=== PATIENT | male | born 1940 | race Caucasian/White ===

== ENCOUNTER 2018-05-06 13:52 | Emergency (ER) | payer OTHER ==
--- OUTSIDE RECORDS SUMMARY | 2018-05-06 13:54 | XMS REPORT | Clinical Summary ---
:1940 Author Organization [facility] Address [address] [place] [address] Care Team Providers Name Role Phone Farheen Delgado MD Primary Care Provider Allergies No Known Allergies Current Medications Prescription Sig. Disp. Refills Start Date End Date Status bicalutamide (CASODEX) 50 50 mg. 09/19/2017 Active mg chemo tablet ezetimibe (ZETIA) 10 mg 10 mg. 09/06/2017 Active tablet fenofibrate (TRICOR) 48 MG 48 mg. 10/03/2017 Active tablet clopidogrel (PLAVIX) 75 mg 75 mg. 09/06/2017 Active tablet atorvastatin (LIPITOR) 80 80 mg. 10/03/2017 Active MG tablet digOXIN (LANOXIN) 125 mcg 09/19/2017 Active tablet sotalol (BETAPACE) 80 MG 80 mg. 10/03/2017 Active tablet aspirin (ECOTRIN) 81 MG Take 81 mg by Active enteric coated tablet mouth daily. furosemide (LASIX) 40 mg Take 40 mg by Active tablet mouth daily. Active Problems Not on file Encounters Date Type Specialty Care Team Description 12/12/2017 Telephone Cardiothoracic Surgery Velasquez Cai MD 12/10/2017 Hospital Encounter Radiology Jimbo Stern MD 12/10/2017 Hospital Encounter Radiology Jimbo Stern MD 12/10/2017 Hospital Encounter Radiology Jimbo Stern MD 12/10/2017 Hospital Encounter Radiology Velasquez Cai Lung nodule; MD Angela Pre-op testing 12/10/2017 Ancillary Orders Cardiothoracic Surgery Velasquez Cai Lung nodule ; MD Angela Pre-op testing 12/07/2017 Telephone Radiology Aida Bashir, MARILOU 12/06/2017 Orders Only Cardiothoracic Surgery Velasquez Cai MD 12/06/2017 Telephone Radiology Aida Bashir RN 11/16/2017 Telephone Cardiothoracic Surgery Leida Rodriguez MA 11/15/2017 Telephone Cardiothoracic Surgery Reanna Mitchell MA 10/31/2017 Telephone Cardiothoracic Surgery Leida Rodriguez MA 10/30/2017 Orders Only Cardiothoracic Surgery Michael, Lung nodule ( Primary Dx); SHAWNEE Casarez Pre-op testing 10/29/2017 Telephone Cardiothoracic Surgery Reanna Mitchell MA 10/22/2017 Hospital Encounter Radiology Velasquez Cai MD 10/22/2017 Office Visit Cardiothoracic Surgery Velasquez Cai MD (Primary Dx) 10/22/2017 Ancillary Orders Radiology Velasquez Cai MD 10/15/2017 Orders Only Cardiothoracic Surgery Clinton Rich MD after 05/05/2017 Family History Medical History Relation Name Comments Heart attack Father Diabetes Mother Relation Name Status Comments Father Mother Social History Tobacco Use Types Packs/Day Years Used Date Current Every Day Smoker Cigarettes 0.1 60 Smokeless Tobacco: Former User Alcohol Use Drinks/Week oz/Week Comments Yes occ. Sex Assigned at Date Recorded Not on file Last Filed Vital Signs Vital Sign Reading Time Taken Blood Pressure 131/60 12/10/2017 1:00 PM CDT Pulse 75 12/10/2017 1:00 PM CDT Temperature 36.3 C (97.3 F) 12/10/2017 1:00 PM CDT Respiratory Rate 18 12/10/2017 1:00 PM CDT Oxygen Saturation 97% 12/10/2017 1:00 PM CDT Inhaled Oxygen Concentration - - Weight 68 kg (150 lb) 12/10/2017 8:01 AM CDT Height 182.9 cm (6') 12/10/2017 8:01 AM CDT Body Mass Index 20.34 12/10/2017 8:01 AM CDT Plan of Treatment Health Maintenance Due Date Last Done Comments SHINGRIX VACCINE (#1) 1990 ZOSTER VACCINE 2000 PNEUMOCOCCAL POLYSACCHARIDE VACCINE AGE 65 AND OVER 2005 PNEUMOCOCCAL-13 2005 INFLUENZA VACCINE 03/27/2018 Procedures Procedure Name Priority Date/Time Associated Comments Diagnosis CYTOLOGY Routine 12/10/2017 4:41 Results for this (NON-GYNECOLOGICAL) PM CDT procedure are in REQUEST the results section. XR CHEST 1 VW Routine 12/10/2017 12:44 Results for this PM CDT procedure are in the results section. MISCELLANEOUS REFERRAL Routine 12/10/2017 12:00 Results for this TEST PM CDT procedure are in the results section. XR CHEST 1 VW Routine 12/10/2017 11:27 Results for this AM CDT procedure are in the results section. XR CHEST 1 VW Routine 12/10/2017 11:00 Results for this AM CDT procedure are in the results section. CT NEEDLE BIOPSY NO Routine 12/10/2017 9:44 Lung nodule Results for this CONTRAST AM CDT Pre-op testing procedure are in the results section. SURGICAL PATHOLOGY Routine 12/10/2017 9:39 Results for this REQUEST AM CDT procedure are in the results section. SURGICAL PATHOLOGY Routine 12/10/2017 9:39 Results for this REQUEST AM CDT procedure are in the results section. SURGICAL PATHOLOGY Routine 12/10/2017 9:39 Results for this REQUEST AM CDT procedure are in the results section. SURGICAL PATHOLOGY Routine 12/10/2017 9:39 Results for this REQUEST AM CDT procedure are in the results section. CBC WITH PLATELET AND Routine 12/06/2017 1:27 Results for this DIFFERENTIAL PM CDT procedure are in the results section. PROTHROMBIN TIME WITH Routine 12/06/2017 1:27 Results for this INR PM CDT procedure are in the results section. PARTIAL THROMBOPLASTIN Routine 12/06/2017 1:27 Results for this TIME (PTT) PM CDT procedure are in the results section. PET CT WHOLE BODY Routine 10/11/2017 9:15 Results for this EXTERNAL STUDY AM OBSTETRICS GYNECOLOGY PHYSICIAN procedure are in the results section. PET CT SKULL BASE MID Routine 10/11/2017 12:00 THIGH EXTERNAL STUDY AM OBSTETRICS GYNECOLOGY PHYSICIAN after 05/05/2017 Results Cytology (non-gynecological) request (12/10/2017 4:41 PM) [facility] DEPARTMENT OF PATHOLOGY AND GENOMIC MEDICINE Cytology See link below for PDF [facility] DEPARTMENT OF (non-gynecological) report Lab Report PATHOLOGY AND GENOMIC MEDICINE Result status This is Final Report to [facility] DEPARTMENT OF [id number] PATHOLOGY AND GENOMIC MEDICINE Performing Organization Address City/State/Zipcode Phone Number [facility] DEPARTMENT OF PATHOLOGY AND [address] [place] [address] GENOMIC MEDICINE XR Chest 1 Vw (12/10/2017 12:44 PM)Only the most recent of3 resultswithin the time period is included. Narrative Performed At PROCEDURE:XR CHEST 1 [facility] CLINICAL HISTORY:post lung bx COMPARISON:December 10, 2017 at 1039 hours TECHNIQUE: A single PA view was performed. FINDINGS: A persistent unchanged left pneumothorax is seen both in the left apex and the left lung base. No tension pneumothorax is seen. Persistent ill-defined shadowing is seen in the left midlung likely representing the lung lesion. The cardiac silhouette is within normal limits for size. The pulmonary vascularity is normal. The patient has had a prior median sternotomy and CABG surgery. IMPRESSION: No change in size of the left pneumothorax is noted from the study done earlier the same day. [id number] Procedure Note Interface, Radiology Results Incoming - 12/10/2017 3:18 PM CDT PROCEDURE: XR CHEST 1 VW CLINICAL HISTORY: post lung bx COMPARISON: December 10, 2017 at 1039 hours TECHNIQUE: A single PA view was performed. FINDINGS: A persistent unchanged left pneumothorax is seen both in the left apex and the left lung base. No tension pneumothorax is seen. Persistent ill-defined shadowing is seen in the left midlung likely representing the lung lesion. The cardiac silhouette is within normal limits for size. The pulmonary vascularity is normal. The patient has had a prior median sternotomy and CABG surgery. IMPRESSION: No change in size of the left pneumothorax is noted from the study done earlier the same day. [id number] Performing Organization Address City/State/Zipcode Phone Number [facility] [address] [place] [address] Miscellaneous referral test (12/10/2017 12:00 PM) [facility] [place] [facility] [id number] [facility] result SEE NOTE [facility] Comment: MET FISH Sample type: Paraffin, lung Case# [id number] RESULTS: NEGATIVE Interpretation: MET(7q31) signals per nucleus: 2.0 CEN7 signals per nucleus: 2.1 MET-CEN7 signal ratio: 1.0 An H&E stained slide was reviewed by a pathologist to identify traget areas containing invasive tumor. FISH analysis was performed within the marked target areas using a dual-probe FISH assay to detect MET overexpression. Results show no evidence of MET amplification with a MET/CEN7 ratio of <2.0. This is a NEGATIVE result. This MET FISH assay was scored manually by a certified histologist technologist. Two or more independent areas containing invasive tumor were analyzed and the technical results underwent further review for senior quality control inspector purposes. Reference range: Positive: MET(7q31) to CEN7 signal ration is >/=2.0 or when 10% of tumor cells contain clusters of >15 copies per cell of MET (7q31) signals. Negative: MET(7q31) to CEN7 signal ratio is <2.0 Equivocal: MET copy number >/=5.0 and MET/CEN7 ratio <2.0 Probe set details: MET: nuc nelly(CEN7x2.1,METx2.0)[50] Nuclei scored: 50 Test(s) performed by: [employer] [facility] [place] Narrative Performed At [facility] MET FISH [id number], A1 DOS 12/10/17 Performing Organization Address City/State/Zipcode Phone Number [facility] [address] [place] [address] CT Needle Biopsy No Contrast (12/10/2017 9:44 AM) Narrative Performed At EXAMINATION:CT NEEDLE BIOPSY NO CONTRAST HM [facility] CLINICAL HISTORY:R91.1 Solitary pulmonary nodule, Z01.818 Encounter for other preprocedural examination, PHU lung Nodule COMPARISON:PET scan dated 10/11/2017 TECHNIQUE: CT-guided biopsy of left upper lobe 1.5 cm nodule The risks, benefits, and alternatives were discussed with the patient and written informed consent was obtained. A site for needle injury was selected and the skin was prepped and draped in the usual sterile fashion. After local administration of 1% buffered lidocaine, a tiny dermatotomy was made. CT guidance was used to obtain 3 20-gauge core specimens of a 1.5 cm left upper lobe nodule were obtained. The specimens were reviewed with pathology and were deemed adequate. The patient was discharged to the radiology recovery area for monitoring prior to discharge. They have been instructed to follow-up with requesting physician for the results of the biopsy. Conscious sedation: 0.5 mg of IV Versed and 25 mcg of IV fentanyl.. The patient was monitored throughout the procedure and in the postprocedure recovery area. Moderate Sedation Intraservice Time: Under physician supervision, Versed and Fentanyl administered intravenously for moderate sedation.Pulse oximetry, heart rate and BP are continuously monitored by an independent trained observer present.The physician spent 29minutes of face to face time with the patient. Post procedure chest regressed demonstrated a small stable left apical and lateral pneumothorax. The patient was asymptomatic without chest pain or shortness of breath and the patient was discharged home in stable condition given the stability and specific instructions. EBL: None. Complications: None. Assistants: None. IMPRESSION: 1.Successful CT-guided core biopsy of left upper lobe 1.5 cm pulmonary nodule. 2.Small postprocedural stable left apical pneumothorax without symptoms. Procedure Note Hm Interface, Radiology Results Incoming - 12/10/2017 5:05 PM CDT EXAMINATION: CT NEEDLE BIOPSY NO CONTRAST CLINICAL HISTORY: R91.1 Solitary pulmonary nodule, Z01.818 Encounter for other preprocedural examination, PHU lung Nodule COMPARISON: PET scan dated 10/11/2017 TECHNIQUE: CT-guided biopsy of left upper lobe 1.5 cm nodule The risks, benefits, and alternatives were discussed with the patient and written informed consent was obtained. A site for needle injury was selected and the skin was prepped and draped in the usual sterile fashion. After local administration of 1% buffered lidocaine, a tiny dermatotomy was made. CT guidance was used to obtain 3 20-gauge core specimens of a 1.5 cm left upper lobe nodule were obtained. The specimens were reviewed with pathology and were deemed adequate. The patient was discharged to the radiology recovery area for monitoring prior to discharge. They have been instructed to follow-up with requesting physician for the results of the biopsy. Conscious sedation: 0.5 mg of IV Versed and 25 mcg of IV fentanyl.. The patient was monitored throughout the procedure and in the postprocedure recovery area. Moderate Sedation Intraservice Time: Under physician supervision, Versed and Fentanyl administered intravenously for moderate sedation. Pulse oximetry, heart rate and BP are continuously monitored by an independent trained observer present. The physician spent 29 minutes of face to face time with the patient. Post procedure chest regressed demonstrated a small stable left apical and lateral pneumothorax. The patient was asymptomatic without chest pain or shortness of breath and the patient was discharged home in stable condition given the stability and specific instructions. EBL: None. Complications: None. Assistants: None. IMPRESSION: 1. Successful CT-guided core biopsy of left upper lobe 1.5 cm pulmonary nodule. 2. Small postprocedural stable left apical pneumothorax without symptoms. Performing Organization Address [facility] Phone Number [facility] [address] [place] [address] Surgical pathology request (12/10/2017 9:39 AM)Only the most recent of4 resultswithin the time period is included. [facility] DEPARTMENT OF PATHOLOGY AND GENOMIC MEDICINE Surgical pathology See link below for PDF Lab [facility] DEPARTMENT OF report Report PATHOLOGY AND GENOMIC MEDICINE Result status This is Supplemental Report [facility] DEPARTMENT OF to [id number] PATHOLOGY AND GENOMIC MEDICINE Performing Organization Address [facility] Phone Number [facility] DEPARTMENT OF PATHOLOGY AND [address] [place] [address] [employer] [facility] Partial thromboplastin time, activated (12/06/2017 1:27 PM) PTT 29 22 - 34 sec [facility] Comment: This test has not been validated for monitoring unfractionated heparin therapy. For testing that is validated for this type of therapy, please refer to the Heparin Anti-Xa assay (test code 89839). For additional information, please refer to http://[employer]/faq/MUA625 (This link is being provided for informational/educational purposes only.) Narrative Performed At FASTING:NO QUEST FASTING: NO Resulting Agency Comment Performing Organization Information: Site ID: [id number] Name: [facility] Address: [address] [place] [phone] Director: Randa Huynh MD Performing Organization Address [facility] Phone Number [place] [facility] [address] [place] [address] Prothrombin time with INR (12/06/2017 1:27 PM) INR 1.0 [facility] Comment: Reference Range 0.9-1.1 Moderate-intensity Warfarin Therapy 2.0-3.0 Higher-intensity Warfarin Therapy 3.0-4.0 Prothrombin time 10.3 9.0 - 11.5 sec [facility] Comment: For more information on this test, go to: http://education.[employer]/faq/RYL395 Narrative Performed At FASTING:NO QUEST FASTING: NO Resulting Agency Comment Performing Organization Information: Site ID: [id number] Name: [facility] Address: [address] [place] [phone] Director: Randa Huynh MD Performing Organization Address City/[facility]/Zipcode Phone Number [place] [facility] [address] [address] CBC with platelet and differential (12/06/2017 1:27 PM) WBC 9.0 3.8 - 10.8 Thousand/uL [facility] RBC 4.31 4.20 - 5.80 Million/uL [facility] HGB 12.9 (L) 13.2 - 17.1 g/dL [facility] HCT 38.5 38.5 - 50.0 % [facility] MCV 89.3 80.0 - 100.0 fL [facility] MCH 29.9 27.0 - 33.0 pg [facility] MCHC 33.5 32.0 - 36.0 g/dL [facility] RDW 13.9 11.0 - 15.0 % [facility] Platelet count 312 140 - 400 Thousand/uL [facility] MPV 12.8 (H) 7.5 - 12.5 fL [facility] Neutrophils, absolute 5,256 1,500 - 7,800 cells/uL [facility] Lymphocytes, absolute 2,691 850 - 3,900 cells/uL [facility] [email or web address] [facility] Monocytes, absolute 729 200 - 950 cells/uL [facility] [email or web address] [facility] Eosinophils, absolute 252 15 - 500 cells/uL [facility] [email or web address] [facility] Basophils, absolute 72 0 - 200 cells/uL [facility] [email or web address] [facility] Neutrophils 58.4 % [facility] Lymphocytes 29.9 % [facility] Monocytes 8.1 % [facility] Eosinophils 2.8 % [facility] [email or web address] [facility] Basophils + RC 0.8 % [facility] Narrative Performed At FASTING:NO QUEST FASTING: NO Resulting Agency Comment Performing Organization Information: Site ID: [id number] Name: [facility] Address: [address] [place] [phone] Director: Randa Huynh MD Performing Organization Address [facility]/Zipcode Phone Number [place] [facility] [address] [address] PET/CT Whole Body External Study (10/11/2017 9:15 AM) Narrative Performed At This exam was not acquired at a [facility] facility and has not been [facility] interpreted by a [facility] Provider.The exam was imported into our imaging system for comparisons purposes. Performing Organization Address City/State/[facility] Phone Number [facility] [address] [place] [address] PET/CT Skull Base Mid Thigh External Study (10/11/2017) Narrative Performed At after 05/05/2017 Insurance Payer Benefit Plan / Group Subscriber ID Type Phone Address [facility] x[facility] O Home: [address] [phone] [place] [phone]
--- NOTE | 2018-05-06 15:03 | EDPHYS ---
Physician Documentation [facility] Name: Daniel Rivers Age: 77 yrs Sex: Male : 1940 Arrival Date: 05/06/2018 Time: 13:56 Bed 23 Private MD: Farheen Delgdao F ED Physician Alejandro Parsons HPI: 05/06 14:58 This 77 yrs old Male presents to ER via Wheelchair with complaints of Urinary rn Problem. 14:58 The patient presents with urinary symptoms, dysuria. Onset: The symptoms/episode rn began/occurred yesterday. Modifying factors: The symptoms are alleviated by nothing, the symptoms are aggravated by urinating. Severity of symptoms: At their worst the symptoms were mild, in the emergency department the symptoms are unchanged. The patient has not experienced similar symptoms in the past. Reports dysuria and increased frequency, has prostate cancer but quit treatments in middle of therapy, has not had surgery, no blood in urine, otherwise feels fine. No fever. . Historical: - Allergies: 14:14 No Known Allergies; aa5 - PMHx: 14:14 Prostate Cancer; aa5 - PSHx: 14:14 Triple Bypass; aa5 - Immunization history:: Pneumococcal vaccine status is unknown, Flu vaccine status is unknown. - Social history:: Smoking status: Patient uses tobacco products, smokes one-half pack cigarettes per day. - Ebola Screening: : No symptoms or risks identified at this time. - Family history:: not pertinent. - Hospitalizations: : No recent hospitalization is reported. ROS: 14:58 Constitutional: Negative for fever, chills, and weight loss, Eyes: Negative for injury, rn pain, redness, and discharge, Neck: Negative for injury, pain, and swelling, Cardiovascular: Negative for chest pain, palpitations, and edema, Respiratory: Negative for shortness of breath, cough, wheezing, and pleuritic chest pain, Abdomen/GI: Negative for abdominal pain, nausea, vomiting, diarrhea, and constipation, : no bleeding, + dysuria MS/Extremity: Negative for injury and deformity, Skin: Negative for injury, rash, and discoloration, Neuro: Negative for headache, weakness, numbness, tingling, and seizure. Exam: 14:58 Constitutional: This is a well developed, well nourished patient who is awake, alert, rn and in no acute distress. Head/Face: Normocephalic, atraumatic. ENT: MMM Abdomen/GI: Soft, non-tende. No distension or tympany. No guarding or rebound. No evidence of tenderness throughout. Male : Normal genitalia with no discharge or lesions. Neuro: Awake and alert, GCS 15, oriented to person, place, time, and situation. Cranial nerves II-XII grossly intact. Motor strength 5/5 in all extremities. Sensory grossly intact. Cerebellar exam normal. Normal gait. Vital Signs: 14:15 BP 108 / 51; Pulse 79; Resp 16 S; Temp 97.5(TE); Pulse Ox 95% on R/A; Weight 68.04 kg aa5 (R); Height 6 ft. 0 in. (182.88 cm) (R); Pain 0/10; 15:31 BP 149 / 62; Pulse 68; Resp 17; Temp 98.2; Pulse Ox 97% on R/A; aj 14:15 Body Mass Index 20.34 (68.04 kg, 182.88 cm) aa5 MDM: 14:16 Patient medically screened. rn 14:58 Differential diagnosis: UTI, urinary retention, prostatitis, urethritis. Data reviewed: rn vital signs, nurses notes, lab test result(s), and as a result, I will discharge patient. Counseling: I had a detailed discussion with the patient and/or guardian regarding: the historical points, exam findings, and any diagnostic results supporting the discharge/admit diagnosis, lab results, the need for outpatient follow up, to return to the emergency department if symptoms worsen or persist or if there are any questions or concerns that arise at home. Special discussion: I discussed with the patient/guardian in detail that at this point there is no indication for admission to the hospital. It is understood, however, that if the symptoms persist or worsen the patient needs to return immediately for re-evaluation. 05/06 14:26 Order name: Urine Microscopic Only rn 05/06 14:26 Order name: Urine Culture rn 05/06 14:26 Order name: Urine Dipstick-Ancillary (obtain specimen); Complete Time: 15:13 rn 05/06 14:26 Order name: Bladder Scanner; Complete Time: 15:13 rn 05/06 15: Order name: Urine Dipstick--Ancillary (enter results) bd Administered Medications: 15:13 Drug: Rocephin (cefTRIAXone) 1 grams Route: IM; Site: right gluteus; aj 15:35 Follow up: Response: No adverse reaction aj Disposition: 05/06/18 15:02 Discharged to Home. Impression: Urinary tract infection, site not specified. - Condition is Stable. - Discharge Instructions: Dysuria, Urinary Tract Infection, Adult. - Prescriptions for Pyridium 200 mg Oral Tablet - take 1 tablet by ORAL route every 8 hours for 3 days; 9 tablet. cefpodoxime 100 mg Oral Tablet - take 2 tablet by ORAL route every 12 hours for 10 days take with food; 40 tablet. - Medication Reconciliation Form, Thank You Letter, Antibiotic Education, Prescription Opioid Use form. - Follow up: Private Physician; When: 2 - 3 days; Reason: Recheck today's complaints, Re-evaluation by your physician. - Problem is new. - Symptoms have improved. Signatures: Dispatcher [employer] EDOlga Pimentel RN RN aj Nieto, Roman, MD MD rn Calderon, Audri, RN RN aa5 Corrections: (The following items were deleted from the chart) 15:35 15:02 05/06/2018 15:02 Discharged to Home. Impression: Urinary tract infection, site aj not specified. Condition is Stable. Forms are Medication Reconciliation Form, Thank You Letter, Antibiotic Education, Prescription Opioid Use. Follow up: Private Physician; When: 2 - 3 days; Reason: Recheck today's complaints, Re-evaluation by your physician. Problem is new. Symptoms have improved. rn
--- NOTE | 2018-05-06 15:03 | ER ---
Nurse's Notes [facility] Name: Daniel Rivers Age: 77 yrs Sex: Male : 1940 Arrival Date: 05/06/2018 Time: 13:56 Bed 23 Private MD: Farheen Delgado F Diagnosis: Urinary tract infection, site not specified Presentation: 05/06 14:12 Presenting complaint: Patient states: "I am having trouble urinating and it's been aa5 hurting for about 2 days". Pt's daughter reports Hx.Prostate Cancer. Transition of care: patient was not received from another setting of care. Onset of symptoms was April 2018. Risk Assessment: Do you want to hurt yourself or someone else? Patient reports no desire to harm self or others. Initial Sepsis Screen: Does the patient meet any 2 criteria? No. Patient's initial sepsis screen is negative. Does the patient have a suspected source of infection? No. Patient's initial sepsis screen is negative. Care prior to arrival: None. 14:12 Method Of Arrival: Wheelchair aa5 14:12 Acuity: DAGOBERTO 3 aa5 Historical: - Allergies: 14:14 No Known Allergies; aa5 - PMHx: 14:14 Prostate Cancer; aa5 - PSHx: 14:14 Triple Bypass; aa5 - Immunization history:: Pneumococcal vaccine status is unknown, Flu vaccine status is unknown. - Social history:: Smoking status: Patient uses tobacco products, smokes one-half pack cigarettes per day. - Ebola Screening: : No symptoms or risks identified at this time. - Family history:: not pertinent. - Hospitalizations: : No recent hospitalization is reported. Screenin:27 Abuse screen: Denies threats or abuse. Denies injuries from another. Nutritional aj screening: No deficits noted. Tuberculosis screening: No symptoms or risk factors identified. Fall Risk None identified. Assessment: 14:27 General: Appears in no apparent distress. comfortable, Behavior is calm, cooperative, aj appropriate for age. Pain: Denies pain. Neuro: Level of Consciousness is awake, alert, obeys commands, Oriented to person, place, time, situation, Appropriate for age. Respiratory: Airway is patent Respiratory effort is even, unlabored, Respiratory pattern is regular, symmetrical. : Reports urgency, urinary frequency. Derm: Skin is intact, is healthy with good turgor, Skin is pink, warm \\T\\ dry. normal. 15:31 Reassessment: Patient appears in no apparent distress at this time. No changes from aj previously documented assessment. Patient and/or family updated on plan of care and expected duration. Pain level reassessed. Patient is alert, oriented x 3, equal unlabored respirations, skin warm/dry/pink. Patient denies pain at this time. Patient states feeling better. Vital Signs: 14:15 BP 108 / 51; Pulse 79; Resp 16 S; Temp 97.5(TE); Pulse Ox 95% on R/A; Weight 68.04 kg aa5 (R); Height 6 ft. 0 in. (182.88 cm) (R); Pain 0/10; 15:31 BP 149 / 62; Pulse 68; Resp 17; Temp 98.2; Pulse Ox 97% on R/A; aj 14:15 Body Mass Index 20.34 (68.04 kg, 182.88 cm) aa5 ED Course: 13:56 Patient arrived in ED. rg4 13:56 Farheen Delgado MD is Private Physician. rg4 14:13 Triage completed. aa5 14:13 Arm band placed on. aa5 14:16 Alejandro Parsons MD is Attending Physician. rn 14:22 Olga Garcia, MARILOU is Primary Nurse. aj 14:27 Patient has correct armband on for positive identification. Bed in low position. Call aj light in reach. Side rails up X2. Pulse ox on. NIBP on. 14:49 Bladder scan completed. 30 ML in bladder. aj 14:50 Initial lab(s) drawn, by me, sent to lab. aj 15:31 No provider procedures requiring assistance completed. Patient did not have IV access aj during this emergency room visit. Administered Medications: 15:13 Drug: Rocephin (cefTRIAXone) 1 grams Route: IM; Site: right gluteus; aj 15:35 Follow up: Response: No adverse reaction aj Outcome: 15:02 Discharge ordered by . rn 15:31 Discharged to home via wheelchair, with family. aj 15:31 Condition: good 15:31 Discharge instructions given to patient, family, Instructed on discharge instructions, follow up and referral plans. medication usage, Demonstrated understanding of instructions, follow-up care, medications, Prescriptions given X 2. 15:35 Patient left the ED. aj Signatures: Olga Garcia, Alejandro Fox RN, MD MD rn Calderon, Audri, MARILOU RN Yoselyn Santana 4
[2018-05-06] MEDS ORDERED: LIDOCAINE 1% MPF 2 ML AMPULE ONE (15:13)
[2018-05-06] MEDS ORDERED: CEFTRIAXONE 1000 MG/VIAL ONE (15:13)
[2018-05-06 15:26] LABS: Urine RBC <5 /HPF (NONE SEEN)
[2018-05-06 15:27] LABS: Urine Bacteria >50 /HPF (NONE SEEN); Urine Culture Reflex Order NOT NEEDED
[2018-05-06 16:00] LABS: Urine Blood 2+ (NEG); Urine Glucose NEGATIVE (NEG); Urine Protein 1+ (NEG); Urine Specific Gravity 1.025 (1.005-1.030)
== END 2018-05-06 15:35 | disposition home or self-care (01) ==
LOC: ER 13:52
DX: N39.0 Urinary tract infection, site not specified (principal); F17.210 Nicotine dependence, cigarettes, uncomplicated; Z85.46 Personal history of malignant neoplasm of prostate
CPT/HCPCS: 87086; 87088; J2001; 81003; 81015; 96372; 99284

== ENCOUNTER 2021-04-23 13:21 | Emergency (ER) | payer OTHER ==
[2021-04-23 14:23] LABS: Absolute Lymphocytes (CBC) 0.4 K/uL (0.7-4.9); Basophils % 0.1 % (0-1.3); Hematocrit 39.5 % (39.6-49.0); Lymphocytes % 3.6 % (15.3-44.8); MPV 9.7 fL (7.6-11.3); RBC Red Blood Cell Count 4.47 M/uL (4.33-5.43)
[2021-04-23 14:26] LABS: Urine Blood Trace-intact (Negative); Urine Glucose Negative (Negative); Urine Protein Negative (Negative); Urine Specific Gravity >=1.030 (1.005-1.030)
[2021-04-23 14:26] LABS: Protime INR 1.4
[2021-04-23] MEDS ORDERED: FAMOTIDINE 20 MG/2 ML VIAL IV ONE (14:26)
[2021-04-23] MEDS ORDERED: NA CHLORIDE 0.9% 1,000 ML ONE (14:27)
[2021-04-23 14:51] LABS: ALT/SGPT 23 U/L (12-78); AST/SGOT 57 U/L (15-37); Albumin 2.9 g/dL (3.4-5.0); Alkaline Phosphatase 44 U/L (45-117); BUN Blood Urea Nitrogen 34 mg/dL (7-18); Bicarbonate 28 mmol/L (21-32); Bilirubin Direct 0.1 mg/dL (0-0.2); Bilirubin Total 0.3 mg/dL (0.2-1.0); Glucose Level 104 mg/dL (74-106); Lipase 114 U/L (73-393); Magnesium 2.2 mg/dL (1.8-2.4); NT PRO-BNP 791 pg/mL (<450); Potassium 3.8 mmol/L (3.5-5.1); Protein, Total 7.4 g/dL (6.4-8.2); Sodium Level 138 mmol/L (136-145); Troponin (Emerg Dept Use Only) < 0.02 ng/mL (0.0-0.045)
--- NOTE | 2021-04-23 15:08 | RAD REPORT ---
EXAM DESCRIPTION: CT - Abdomen Pelvis Wo Contrast - 04/23/2021 2:43 pm CLINICAL HISTORY: Abdominal pain. ABD PAIN COMPARISON: CT ABD PELVIS W CONTRAST dated 10/22/2007; CT-RAD THERAPY FLD PLACE-CHEST dated 03/07/2021 ; Ct Skull/Thigh dated 02/03/2021; Chest Abdomen Pelvis W Cont dated 01/06/2021 TECHNIQUE: CT imaging of the abdomen and pelvis was performed without contrast. Solid organ, bowel a nd vascular assessment is limited due to lack of IV and oral contrast. All CT scans are performed using dose optimization technique as appropriate and may include automated exposure control or mA/KV adjustment according to patient size. FINDINGS: Mild nonspecific opacities are present in both lung bases posteriorly. The liver, spleen, pancreas, adrenal glands and kidneys are within normal limits for a limited non-co ntrast examination.Small gallstones suspected in the gallbladder. No bowel obstruction, free air, free fluid or abscess. Sigmoid diverticulosis coli without diverticul itis. The appendix is normal. 15 mm diverticulum of the posterior right aspect of the urinary bladder seen close to the right UVJ. Moderate lumbar degenerative changes. IMPRESSION: Cholelithiasis. 15 mm diverticulum along the posterior right aspect of the urinary bladder near UVJ. Sigmoid diverticulosis without diverticulitis. A limited non-contrast examination was performed as detailed.
--- NOTE | 2021-04-23 15:23 | RAD REPORT ---
EXAM DESCRIPTION: RAD - Chest Single View - 04/23/2021 3:05 pm CLINICAL HISTORY: COUGH Chest pain. COMPARISON: CHEST PA AND LAT 2 VIEW dated 12/30/2009; CHEST PA AND LAT 2 VIEW dated 09/25/2007 FINDINGS: Portable technique limits examination quality. Mild interstitial prominence is seen. This may represent mild interstitial pulmonary edema or viral i nfection/bronchitis. The heart is normal in size. No displaced fractures.Changes of prior CABG are no nicolás.
--- NOTE | 2021-04-23 17:47 | EDPHYS ---
Physician Documentation [facility] Name: Daniel Rviers Age: 80 yrs Sex: Male : 1940 Arrival Date: 04/23/2021 Time: 13:26 Bed 27 Private MD: ALEXI Physician Karlos Pierson HPI: 04/23 17:37 This 80 yrs old Male presents to ER via EMS with complaints of Abdominal Pain.luz maria 17:37 The patient presents with abdominal pain in the upper abdomen, in the lower abdomen. luz maria Onset: The symptoms/episode began/occurred 1 day(s) ago. The symptoms do not radiate. Associated signs and symptoms: Pertinent positives: dysuria, nausea. The symptoms are described as achy, burning. Modifying factors: The symptoms are alleviated by nothing, the symptoms are aggravated by nothing. The patient has not experienced similar symptoms in the past. Historical: - Allergies: 17:07 No Known Allergies; ld1 - PMHx: 17:07 Prostate Cancer; ld1 - Immunization history:: Adult Immunizations up to date. - Social history:: Smoking status: . - Family history:: not pertinent. ROS: 17:37 Constitutional: Negative for fever, chills, and weight loss, Eyes: Negative for injury, luz maria pain, redness, and discharge, ENT: Negative for injury, pain, and discharge, Neck: Negative for injury, pain, and swelling, Cardiovascular: Negative for chest pain, palpitations, and edema, Respiratory: Negative for shortness of breath, cough, wheezing, and pleuritic chest pain, Back: Negative for injury and pain, MS/Extremity: Negative for injury and deformity, Skin: Negative for injury, rash, and discoloration, Neuro: Negative for headache, weakness, numbness, tingling, and seizure, Psych: Negative for depression, anxiety, suicide ideation, homicidal ideation, and hallucinations, Allergy/Immunology: Negative for hives, rash, and allergies, Endocrine: Negative for neck swelling, polydipsia, polyuria, polyphagia, and marked weight changes, Hematologic/Lymphatic: Negative for swollen nodes, abnormal bleeding, and unusual bruising. 17:37 Abdomen/GI: Positive for abdominal pain, of the right upper quadrant, left upper quadrant, right lower quadrant and left lower quadrant. Exam: 17:37 Constitutional: This is a well developed, well nourished patient who is awake, alert, luz maria and in no acute distress. Head/Face: Normocephalic, atraumatic. Eyes: Pupils equal round and reactive to light, extra-ocular motions intact. Lids and lashes normal. Conjunctiva and sclera are non-icteric and not injected. Cornea within normal limits. Periorbital areas with no swelling, redness, or edema. ENT: Nares patent. No nasal discharge, no septal abnormalities noted. Tympanic membranes are normal and external auditory canals are clear. Oropharynx with no redness, swelling, or masses, exudates, or evidence of obstruction, uvula midline. Mucous membranes moist. Neck: Trachea midline, no thyromegaly or masses palpated, and no cervical lymphadenopathy. Supple, full range of motion without nuchal rigidity, or vertebral point tenderness. No Meningismus. Chest/axilla: Normal chest wall appearance and motion. Nontender with no deformity. No lesions are appreciated. Cardiovascular: Regular rate and rhythm with a normal S1 and S2. No gallops, murmurs, or rubs. Normal PMI, no JVD. No pulse deficits. Respiratory: Lungs have equal breath sounds bilaterally, clear to auscultation and percussion. No rales, rhonchi or wheezes noted. No increased work of breathing, no retractions or nasal flaring. Abdomen/GI: Soft, non-tender, with normal bowel sounds. No distension or tympany. No guarding or rebound. No evidence of tenderness throughout. Back: No spinal tenderness. No costovertebral tenderness. Full range of motion. Male : Normal genitalia with no discharge or lesions. Skin: Warm, dry with normal turgor. Normal color with no rashes, no lesions, and no evidence of cellulitis. MS/ Extremity: Pulses equal, no cyanosis. Neurovascular intact. Full, normal range of motion. Neuro: Awake and alert, GCS 15, oriented to person, place, time, and situation. Cranial nerves II-XII grossly intact. Motor strength 5/5 in all extremities. Sensory grossly intact. Cerebellar exam normal. Normal gait. Psych: Awake, alert, with orientation to person, place and time. Behavior, mood, and affect are within normal limits. 17:37 Neuro: Orientation: to person, place, Not oriented to time, situation, Mentation: no acute changes, slow to respond, Memory: unable to test, Cranial nerves: grossly normal, is grossly normal based on the patient's age, no acute changes, Cerebellar function: unable to test, Motor: moves all fours, strength is 5/5 in all extremities, Sensation: no obvious gross deficits, appropriate Gait: not tested. seizure activity, is not displayed by the patient. Vital Signs: 13:29 BP 110 / 76; Pulse 65; Resp 18; Pulse Ox 95% on 2 lpm NC; Pain 3/10; ch5 13:35 BP 120 / 57; Pulse 77; Resp 18; Temp 97.7(T); Pulse Ox 94% on R/A; Pain 3/10; ch5 15:26 BP 111 / 71; Pulse 78; Resp 24; Pulse Ox 94% on 4 lpm NC; ld1 17:04 BP 110 / 56; Pulse 78; Resp 18; Pulse Ox 97% on 4 lpm NC; ld1 17:47 BP 116 / 60; Pulse 79; Resp 24; Pulse Ox 95% on 4 lpm NC; ld1 19:14 BP 114 / 80; Pulse 78; Resp 19; Pulse Ox 94% on 4 lpm NC; ld1 MDM: 13:46 Patient medically screened. luz maria 17:37 Differential diagnosis: bowel obstruction, cholecystitis, Cholelithiasis, luz maria diverticulitis, gastritis, Irritable bowel syndrome, non-specific abd pain, pancreatitis, Peptic Ulcer Disease, Prostatitis, Ureterolithiasis, urinary tract infection. Data reviewed: vital signs, nurses notes, lab test result(s), EKG, radiologic studies. Data interpreted: engine monitor: rate is 78 beats/min, rhythm is regular, Pulse oximetry: on room air is 97 %. Test interpretation: by ED physician or midlevel provider: ECG, plain radiologic studies. 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 04/23 13:46 Order name: Basic Metabolic Panel [facility] 04/23 13:46 Order name: CBC with Diff [facility] 04/23 13:46 Order name: LFT's [facility] 04/23 13:46 Order name: Magnesium; Complete Time: 17:02 [facility] 04/23 13:46 Order name: NT PRO-BNP; Complete Time: 17:02 [facility] 04/23 13:46 Order name: PT-INR; Complete Time: 17:02 [facility] 04/23 13:46 Order name: Troponin (emerg Dept Use Only); Complete Time: 17:02 [facility] 04/23 13:46 Order name: Lipase; Complete Time: 17:02 [facility] 04/23 13:46 Order name: Urine Culture [facility] 04/23 13:47 Order name: Basic Metabolic Panel; Complete Time: 17:02 [facility] 04/23 13:47 Order name: CBC with Automated Diff [facility] 04/23 13:47 Order name: Liver (Hepatic) Function; Complete Time: 17:02 [facility] 04/23 14:26 Order name: Urine Dipstick-Ancillary; Complete Time: 17:02 [facility] 04/23 20:11 Order name: CBC Smear Scan [facility] 04/23 13:46 Order name: XRAY Chest (1 view); Complete Time: 17:02 [facility] 04/23 13:46 Order name: EKG; Complete Time: 13:47 [facility] 04/23 13:46 Order name: Cardiac monitoring; Complete Time: 15:26 [facility] 04/23 13:46 Order name: EKG - Nurse/Tech; Complete Time: 15:26 [facility] 04/23 13:46 Order name: IV Saline Lock; Complete Time: 14:30 [facility] 04/23 13:46 Order name: Labs collected and sent; Complete Time: 14:30 [facility] 04/23 13:46 Order name: O2 Per Protocol; Complete Time: 14:30 [facility] 04/23 13:46 Order name: O2 Sat Monitoring; Complete Time: 14:30 [facility] 04/23 13:46 Order name: Urine Dipstick-Ancillary (obtain specimen); Complete Time: 14:29 [facility] 04/23 14:42 Order name: Abdomen ; Complete Time: 17:02 [facility] Administered Medications: 14:00 Drug: NS 0.9% 1000 ml Route: IV; Rate: 125 ml/hr; Site: right antecubital; ch5 14:00 Drug: Pepcid (famotidine) 20 mg Route: IVP; Site: right antecubital; ch5 17:46 Follow up: Response: No adverse reaction ld1 17:46 Drug: Rocephin (cefTRIAXone) 1 grams Route: IV; Rate: per protocol; Site: right ld1 antecubital; 18:33 Follow up: Response: No adverse reaction ld1 Disposition Summary: 04/23/21 17:46 Discharge Ordered Location: Home luz maria Problem: new luz maria Symptoms: have improved luz maria Condition: Stable luz maria Diagnosis - UTI/ Urinary tract infection, site not specified luz maria - Abdominal tenderness luz maria - Dementia in other diseases classified elsewhere without behavioral disturbance luz maria - Unspecified kidney failure - CHRONIC luz maria Followup: luz maria - With: Private Physician - When: 2 - 3 days - Reason: Recheck today's complaints, Continuance of care, Re-evaluation by your physician Discharge Instructions: - Discharge Summary Sheet luz maria - Dementia luz maria - Dysuria luz maria - Urinary Tract Infection, Adult luz maria - Urinary Tract Infection, Adult, [id number] luz maria - Chronic Kidney Disease, Adult, [id number] luz maria Forms: - Medication Reconciliation Form luz maria - Thank You Letter luz maria - Antibiotic Education luz maria - Prescription Opioid Use luz maria Prescriptions: - Augmentin 500-125 mg Oral Tablet - take 1 tablet by ORAL route every 12 hours for 10 days; 20 tablet; Refills: 0, luz maria Product Selection Permitted Signatures: Dispatcher [employer] EDMS Karlos Pierson MD MD cha Dibbern, Lauren, RN RN ld1 Joe Medina, RN RN ch5 Corrections: (The following items were deleted from the chart) 14:42 13:47 Abdomen Pelvis W Con+CT.RAD.BRZ ordered. EDMS EDMS
--- NOTE | 2021-04-23 17:47 | ER ---
Nurse's Notes [facility] Name: Daniel Rivers Age: 80 yrs Sex: Male : 1940 Arrival Date: 04/23/2021 Time: 13:26 Bed 27 Private MD: Diagnosis: UTI/ Urinary tract infection, site not specified;Abdominal tenderness;Dementia in other diseases classified elsewhere without behavioral disturbance;Unspecified kidney failure-CHRONIC Presentation: 04/23 13:29 Chief complaint: Patient states: Painful urination and abd pain when moved. Coronavirus 5 screen: Vaccine status: Patient reports receiving the 2nd dose of the covid vaccine. Client denies travel out of the [place] in the last 14 days. Ebola Screen: Patient negative for fever greater than or equal to 101.5 degrees Fahrenheit, and additional compatible Ebola Virus Disease symptoms Patient denies exposure to infectious person. Patient denies travel to an Ebola-affected area in the 21 days before illness onset. Initial Sepsis Screen: Does the patient meet any 2 criteria? No. Patient's initial sepsis screen is negative. Does the patient have a suspected source of infection? Yes: Acute abdominal pain Other: Painful Urination. Risk Assessment: Do you want to hurt yourself or someone else? Patient reports no desire to harm self or others. Onset of symptoms was April 21, 2001. 13:29 Method Of Arrival: EMS: [facility] 13:29 Acuity: DAGOBERTO 3 [facility] Triage Assessment: 13:29 General: Appears in no apparent distress. Pain: Complains of pain in pelvis. [facility] Historical: - Allergies: 17:07 No Known Allergies; ld1 - PMHx: 17:07 Prostate Cancer; ld1 - Immunization history:: Adult Immunizations up to date. - Social history:: Smoking status: . - Family history:: not pertinent. Screenin:08 Abuse screen: Denies threats or abuse. Denies injuries from another. Nutritional ld1 screening: No deficits noted. Tuberculosis screening: No symptoms or risk factors identified. Fall Risk None identified. Assessment: 14:00 General: Appears in no apparent distress. comfortable, Behavior is calm, cooperative, ld1 appropriate for age. Pain: Complains of pain in abdomen Pain does not radiate. Pain currently is 8 out of 10 on a pain scale. Quality of pain is described as burning, Pain began 1 day ago. Is intermittent. 14:00 Neuro: Level of Consciousness is awake, alert, obeys commands, Oriented to person, ld1 place, time, situation, Appropriate for age. Cardiovascular: Capillary refill < 3 seconds Patient's skin is warm and dry. Respiratory: Airway is patent Respiratory effort is even, unlabored, Respiratory pattern is regular, symmetrical. GI: Abdomen is flat, non-distended, Bowel sounds present X 4 quads. Abd is soft Abdomen is tender to palpation X 4 quads. : No signs and/or symptoms were reported regarding the genitourinary system. EENT: No signs and/or symptoms were reported regarding the EENT system. Derm: No signs and/or symptoms reported regarding the dermatologic system. Musculoskeletal: No signs and/or symptoms reported regarding the musculoskeletal system. 15:00 Reassessment: Patient appears in no apparent distress at this time. Patient is alert, ld1 oriented x 3, equal unlabored respirations, skin warm/dry/pink. 16:00 Reassessment: Patient appears in no apparent distress at this time. Patient is alert, ld1 oriented x 3, equal unlabored respirations, skin warm/dry/pink. Patient denies pain at this time. 17:05 Reassessment: Patient appears in no apparent distress at this time. No changes from 1 previously documented assessment. Patient and/or family updated on plan of care and expected duration. Pain level reassessed. Patient is alert, oriented x 3, equal unlabored respirations, skin warm/dry/pink. 17:47 Reassessment: Patient appears in no apparent distress at this time. Patient is alert, ld1 oriented x 3, equal unlabored respirations, skin warm/dry/pink. 19:14 Reassessment: Called report to [facility]. Waiting on [facility] ambulance to [facility] transport patient. 23:19 Reassessment: Patient appears in no apparent distress at this time. No changes from [facility] previously documented assessment. Patient is alert, oriented x 3, equal unlabored respirations, skin warm/dry/pink. Vital Signs: 13:29 BP 110 / 76; Pulse 65; Resp 18; Pulse Ox 95% on 2 lpm NC; Pain 3/10; ch5 13:35 BP 120 / 57; Pulse 77; Resp 18; Temp 97.7(T); Pulse Ox 94% on R/A; Pain 3/10; ch5 15:26 BP 111 / 71; Pulse 78; Resp 24; Pulse Ox 94% on 4 lpm NC; ld1 17:04 BP 110 / 56; Pulse 78; Resp 18; Pulse Ox 97% on 4 lpm NC; ld1 17:47 BP 116 / 60; Pulse 79; Resp 24; Pulse Ox 95% on 4 lpm NC; ld1 19:14 BP 114 / 80; Pulse 78; Resp 19; Pulse Ox 94% on 4 lpm NC; ld1 ED Course: 13:26 Patient arrived in ED. ds1 13:33 Triage completed. ch5 13:35 Arm band placed on right wrist. ch5 13:42 Joe Medina, MARILOU is Primary Nurse. ch5 13:45 Karlos Pierson MD is Attending Physician. [facility] 14:00 No provider procedures requiring assistance completed. Inserted saline lock: 20 gauge ld1 in right antecubital area, using aseptic technique. Blood collected. 14:28 Basic Metabolic Panel Sent. ch5 14:28 CBC with Automated Diff Sent. ch5 14:28 Liver (Hepatic) Function Sent. ch5 14:29 Basic Metabolic Panel Sent. ch5 14:29 CBC with Diff Sent. ch5 14:29 LFT's Sent. ch5 14:43 Abdomen In Process Unspecified. EDMS 15:05 XRAY Chest (1 view) In Process Unspecified. EDMS 17:08 Patient has correct armband on for positive identification. Placed in gown. Bed in low ld1 position. Call light in reach. Side rails up X2. hydraulic auto jack mechanic on. Pulse ox on. NIBP on. Door closed. Warm blanket given. Pillow given. 23:20 IV discontinued, intact, bleeding controlled, No redness/swelling at site. ld1 Administered Medications: 14:00 Drug: NS 0.9% 1000 ml Route: IV; Rate: 125 ml/hr; Site: right antecubital; 5 14:00 Drug: Pepcid (famotidine) 20 mg Route: IVP; Site: right antecubital; 5 17:46 Follow up: Response: No adverse reaction ld1 17:46 Drug: Rocephin (cefTRIAXone) 1 grams Route: IV; Rate: per protocol; Site: right ld1 antecubital; 18:33 Follow up: Response: No adverse reaction ld1 Outcome: 17:46 Discharge ordered by MD. loera 23:19 Transferred by ground EMS Note: [facility] ld1 23:19 Condition: stable 23:19 Discharge instructions given to patient. 23:20 Patient left the ED. ld1 Signatures: Dispatcher [employer] EDKarlos Montilla MD MD cha Sanford, Demi ds1 Katiuska Joiner RN RN 1 Joe Medina RN RN ch5 Corrections: (The following items were deleted from the chart) 13:35 13:29 Pain: Complains of pain in pelvis ch5 ch5
[2021-04-23] MEDS ORDERED: CEFTRIAXONE/SWI 1gm 1 GM/10 ML SYR ONE (18:08)
[2021-04-23 20:11] LABS: Blood Morphology Comment NOT SEEN (NOT SEEN); Platelet Estimate ADEQ; Platelets, Giant FEW; White Blood Cell Scan OK (OK)
[2021-04-23 23:28] VITALS: TEMP 97.7
[2021-04-23 23:34] VITALS: BP 114/80; O2SAT 94
== END 2021-04-23 23:20 | disposition home or self-care (01) ==
LOC: ER 13:21
DX: N39.0 Urinary tract infection, site not specified (principal); N18.9 Chronic kidney disease, unspecified; Z85.46 Personal history of malignant neoplasm of prostate
CPT/HCPCS: 93005 ×2; 87088; 85025; 87086; 80048; 36415; 83735; 85610; 80076; 81003; 84484; 83690; 83880; 74176; 71045; 96375; 96374; 99285; J0696; J7030; 87077; 87186

== ENCOUNTER 2023-07-14 08:55 | Inpatient (IN) | payer OTHER ==
--- OUTSIDE RECORDS SUMMARY | 2023-07-14 08:58 | XMS REPORT | Continuity of Care Document ---
:1940 Author Organization [facility] t Address 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 - [facility] 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 - [facility] disease disease [facility] Chronic Chronic Problem Common obstructiv obstructiv Sp shala e e - [facility] pulmonary pulmonary St disease [facility] (COPD) [facility] 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 [facility] [id number] Stricture Problem Co 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 of Spirit urethral - [facility] meatus in [facility] unspecifie [facility] Center stricture type [id number] Lower Problem Common obstructiv Spirit e uropathy - [facility] 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 - [facility] Cancer of Cancer of Problem Com mon left lung left lung Spir it - [facility] [id number] 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 - [facility] [id number] Primary Problem Common malignant Spirit neoplasm - [facility] with high Medical risk of Center recurrence due to Luis score of 8 to 10 and PSA greater than 20 [id number] S/P Problem Common radiation Spirit therapy - [facility] [id number] DSD Problem Common (detrusor Spirit and - [facility]er [facility] [id number] 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 - [facility] 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 Spirit of upper of upper - [facility] lobe, lobe, left St bronchus bronchus [facility] or lung or lung [facility] [id number] Incomplete Problem Co mmon emptying Spirit of bladder - [facility] [id number] Lower Problem Common urinary Spirit tract - [facility] symptoms (LU) [facility] Urge Urge Problem Common incontinen incontinen Sp shala ce of ce of [facility] urine urine [facility] 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 Family History Family Member Diagnosis Comments Start Date Stop Date Source Natural father [facility] mother [facility] Social History Social Habit Start Date Stop Date Quantity Comments Source History of Tobacco Common Spirit - Use [facility] Alcohol intake 2017-10-22 2017-10-22 Current drinker [facility] 00:00:00 00:00:00 of alcohol Hospital (finding) History of Social 2017-10-22 2017-10-[address] function 00:00:00 00:00:00 Hospital Alcohol Comment 2017-10-22 2017-10-22 occ. [facility] 00:[facility]:00 Hospital Cigarettes smoked 2017-10-22 2017-10-22 [facility] current (pack per 00:00:00 00:00:00 Hospita l day) - Reported Cigarette 2017-10-22 2017-10-22 [facility] pack-years 00:00:00 00:00:00 Hospital Tobacco use and 2017-10-22 2017-10-22 Former smokeless [facility] exposure 00:00:00 00:00:00 tobacco user Hospital Sex Assigned At [birth year] [facility] 00:[facility] Smoking Status Start Date Stop Date Source Unknown if ever smoked Common Sp [facility] Smokes tobacco daily 2017-10-22 00:00:00 [facility] Medications Ordered Filled Start Stop Current Ordering Indication Dosage Frequency Signature Comments Components Source Medication Medication Date Date Medication? Clinician (SIG) Name Name Solifenacin Solifenacin 0 No 1{table QD Solifenaci Succinate 5 Succinate 5 3-29 t} n MG MG 00:00: Succinate 00 5 MG Solifenacin Solifenacin 2021- 2023- No 1{table QD Solifenaci Succinate Succinate 03-17 t} n 10 MG 10 MG 00:00: 00:00 Succinate 00 :00 10 MG Solifenacin Solifenacin 2021-0 2023- No 1{table QD Solifenaci Succinate Succinate 03-17 t} n 10 MG 10 MG 00:00: 00:00 Succinate 00 :00 10 MG Solifenacin Solifenacin 2021-0 2023- No 1{table QD Solifenaci Succinate Succinate 03-17 t} n 10 MG 10 MG 00:00: 00:00 Succinate 00 :00 10 MG Solifenacin Solifenacin 2021-0 2023- No 1{table QD Solifenaci Succinate 5 Succinate 5 03-17 t} n MG MG 00:00: 00:00 Succinate 00 :00 5 MG Solifenacin Solifenacin 2021-0 2023- No 1{table QD Solifenaci Succinate 5 Succinate 5 03-17 t} n MG MG 00:00: 00:00 Succinate 00 :00 5 MG Solifenacin Solifenacin 0 2022- No 1{table QD Solifenaci Succinate 5 Succinate 5 03-17 t} n MG MG 00:00: 00:00 Succinate 00 :00 5 MG furosemide 2018-0 Yes 40mg QD Take 40 mg M ethodi (LASIX) 40 4-[address] mg tablet 08:02: daily. Hospit a 10 l aspirin 2018-0 Yes 81mg QD Take 81 mg Meth jaxon (ECOTRIN) 4-[address] 81 MG 07:55: daily. Hospita enteric 41 l coated tablet fenofibrate 20180 Yes 48mg 48 mg. Meth jaxon (TRICOR) 48 2- st MG tablet 00:00: Hospita 00 l atorvastati 20180 Yes 80mg 80 mg. Meth jaxon n (LIPITOR) 2 st 80 MG 00:00: Hospita tablet 00 l sotalol 20180 Yes 80mg 80 mg. [facility] (BETAPACE) 2 st 80 MG 00:00: Hospita tablet 00 l bicalutamid 2018-0 Yes 50mg 50 mg. Meth jaxon e (CASODEX) 09-19 st 50 mg chemo 00:00: Hospit a tablet 00 l digOXIN 0 Yes [facility] (LANOXIN) 09-19 st 125 mcg 00:00: Hospita tablet 00 l ezetimibe 2018-0 Yes 10mg 10 mg. Method i (ZETIA) 10 -11 st mg tablet 00:00: Hospita 00 l clopidogrel 2018-0 Yes 75mg 75 mg. Meth jaxon (PLAVIX) 75 -11 st mg tablet 00:00: Hospita 00 l Potassium Potassium No 1{table QD Potassium Chloride ER Chloride ER t_with_ Chloride 20 MEQ 20 MEQ food} ER 20 MEQ Flomax 0.4 Flomax 0.4 No 1{capsu QD Flomax 0.4 MG MG le} MG Furosemide Furosemide No 1{table QD Furosemide 20 MG 20 MG t} 20 MG Aspirin 81 Aspirin 81 No 1{table QD Aspirin 81 81 MG 81 MG t} 81 MG Potassium Potassium No 1{table QD Potassium Chloride ER Chloride ER t_with_ Chloride 20 MEQ 20 MEQ food} ER 20 MEQ Acetaminoph Acetaminoph No 1{table QID Acetaminop en-Codeine en-Codeine t_as_ne hen-Codein 300-30 MG 300-30 MG eded} e 300-30 MG Flomax 0.4 Flomax 0.4 No 1{capsu QD Flomax 0.4 MG MG le} MG Sotalol HCl Sotalol HCl No 1{table BID Sotalol 160 MG 160 MG t} HCl 160 MG Docusate Docusate No 1{capsu QD Docusate Sodium 100 Sodium 100 le_as_n Sodium 100 MG MG eeded} MG Loratadine Loratadine No 1{table QD Loratadine 10 MG 10 MG t} 10 MG Zetia 10 MG Zetia 10 MG No 1{table QD Zetia 10 t} MG Mirtazapine Mirtazapine No 2{table QD Mirtazapin 7.5 MG 7.5 MG ts_at_b e 7.5 MG edtime} Pravastatin Pravastatin No 1{table QD Pravastati Sodium 10 Sodium 10 t} n Sodium MG MG 10 MG Sertraline Sertraline No 1{table QD Sertraline HCl 50 MG HCl 50 MG t} HCl 50 MG Fenofibrate Fenofibrate No 1{table QD Fenofibrat 48 MG 48 MG t} e 48 MG Myrbetriq Myrbetriq No 1{table QD Myrbetriq 50 MG 50 MG t} 50 MG Bicalutamid Bicalutamid No 1{table QD Bicalutami e 50 MG e 50 MG t} de 50 MG Furosemide Furosemide No 1{table QD Furosemide 20 MG 20 MG t} 20 MG Lactobacill Lactobacill No Lactobacil us - us - danielle - Aspirin 81 Aspirin 81 No 1{table QD Aspirin 81 81 MG 81 MG t} 81 MG Potassium Potassium No 1{table QD Potassium Chloride ER Chloride ER t_with_ Chloride 20 MEQ 20 MEQ food} ER 20 MEQ Acetaminoph Acetaminoph No 1{table QID Acetaminop en-Codeine en-Codeine t_as_ne hen-Codein 300-30 MG 300-30 MG eded} e 300-30 MG Flomax 0.4 Flomax 0.4 No 1{capsu QD Flomax 0.4 MG MG le} MG Sotalol HCl Sotalol HCl No 1{table BID Sotalol 160 MG 160 MG t} HCl 160 MG Docusate Docusate No 1{capsu QD Docusate Sodium 100 Sodium 100 le_as_n Sodium 100 MG MG eeded} MG Loratadine Loratadine No 1{table QD Loratadine 10 MG 10 MG t} 10 MG Zetia 10 MG Zetia 10 MG No 1{table QD Zetia 10 t} MG Mirtazapine Mirtazapine No 2{table QD Mirtazapin 7.5 MG 7.5 MG ts_at_b e 7.5 MG edtime} Pravastatin Pravastatin No 1{table QD Pravastati Sodium 10 Sodium 10 t} n Sodium MG MG 10 MG Sertraline Sertraline No 1{table QD Sertraline HCl 50 MG HCl 50 MG t} HCl 50 MG Fenofibrate Fenofibrate No 1{table QD Fenofibrat 48 MG 48 MG t} e 48 MG Myrbetriq Myrbetriq No 1{table QD Myrbetriq 50 MG 50 MG t} 50 MG Bicalutamid Bicalutamid No 1{table QD Bicalutami e 50 MG e 50 MG t} de 50 MG Furosemide Furosemide No 1{table QD Furosemide 20 MG 20 MG t} 20 MG Lactobacill Lactobacill No Lactobacil us - us - danielle - Aspirin 81 Aspirin 81 No 1{table QD Aspirin 81 81 MG 81 MG t} 81 MG Potassium Potassium No 1{table QD Potassium Chloride ER Chloride ER t_with_ Chloride 20 MEQ 20 MEQ food} ER 20 MEQ Acetaminoph Acetaminoph No 1{table QID Acetaminop en-Codeine en-Codeine t_as_ne hen-Codein 300-30 MG 300-30 MG eded} e 300-30 MG Flomax 0.4 Flomax 0.4 No 1{capsu QD Flomax 0.4 MG MG le} MG Sotalol HCl Sotalol HCl No 1{table BID Sotalol 160 MG 160 MG t} HCl 160 MG Docusate Docusate No 1{capsu QD Docusate Sodium 100 Sodium 100 le_as_n Sodium 100 MG MG eeded} MG Loratadine Loratadine No 1{table QD Loratadine 10 MG 10 MG t} 10 MG Zetia 10 MG Zetia 10 MG No 1{table QD Zetia 10 t} MG Mirtazapine Mirtazapine No 2{table QD Mirtazapin 7.5 MG 7.5 MG ts_at_b e 7.5 MG edtime} Pravastatin Pravastatin No 1{table QD Pravastati Sodium 10 Sodium 10 t} n Sodium MG MG 10 MG Sertraline Sertraline No 1{table QD Sertraline HCl 50 MG HCl 50 MG t} HCl 50 MG Fenofibrate Fenofibrate No 1{table QD Fenofibrat 48 MG 48 MG t} e 48 MG Myrbetriq Myrbetriq No 1{table QD Myrbetriq 50 MG 50 MG t} 50 MG Bicalutamid Bicalutamid No 1{table QD Bicalutami e 50 MG e 50 MG t} de 50 MG Furosemide Furosemide No 1{table QD Furosemide 20 MG 20 MG t} 20 MG Lactobacill Lactobacill No Lactobacil us - us - danielle - Aspirin 81 Aspirin 81 No 1{table QD Aspirin 81 81 MG 81 MG t} 81 MG Pravastatin Pravastatin No 1{table QD Pravastati Sodium 10 Sodium 10 t} n Sodium MG MG 10 MG Mirtazapine Mirtazapine No 2{table QD Mirtazapin 7.5 MG 7.5 MG ts_at_b e 7.5 MG edtime} Flomax 0.4 Flomax 0.4 No 1{capsu QD Flomax 0.4 MG MG le} MG Sertraline Sertraline No 1{table QD Sertraline HCl 50 MG HCl 50 MG t} HCl 50 MG Sotalol HCl Sotalol HCl No 1{table BID Sotalol 160 MG 160 MG t} HCl 160 MG Myrbetriq Myrbetriq No 1{table QD Myrbetriq 50 MG 50 MG t} 50 MG Loratadine Loratadine No 1{table QD Loratadine 10 MG 10 MG t} 10 MG Furosemide Furosemide No 1{table QD Furosemide 20 MG 20 MG t} 20 MG Zetia 10 MG Zetia 10 MG No 1{table QD Zetia 10 t} MG Lactobacill Lactobacill No Lactobacil us - us - danielle - Fenofibrate Fenofibrate No 1{table QD Fenofibrat 48 MG 48 MG t} e 48 MG Acetaminoph Acetaminoph No 1{table QID Acetaminop en-Codeine en-Codeine t_as_ne hen-Codein 300-30 MG 300-30 MG eded} e 300-30 MG Bicalutamid Bicalutamid No 1{table QD Bicalutami e 50 MG e 50 MG t} de 50 MG Potassium Potassium No 1{table QD Potassium Chloride ER Chloride ER t_with_ Chloride 20 MEQ 20 MEQ food} ER 20 MEQ Docusate Docusate No 1{capsu QD Docusate Sodium 100 Sodium 100 le_as_n Sodium 100 MG MG eeded} MG Aspirin 81 Aspirin 81 No 1{table QD Aspirin 81 81 MG 81 MG t} 81 MG Pravastatin Pravastatin No 1{table QD Pravastati Sodium 10 Sodium 10 t} n Sodium MG MG 10 MG Mirtazapine Mirtazapine No 2{table QD Mirtazapin 7.5 MG 7.5 MG ts_at_b e 7.5 MG edtime} Flomax 0.4 Flomax 0.4 No 1{capsu QD Flomax 0.4 MG MG le} MG Sertraline Sertraline No 1{table QD Sertraline HCl 50 MG HCl 50 MG t} HCl 50 MG Sotalol HCl Sotalol HCl No 1{table BID Sotalol 160 MG 160 MG t} HCl 160 MG Myrbetriq Myrbetriq No 1{table QD Myrbetriq 50 MG 50 MG t} 50 MG Loratadine Loratadine No 1{table QD Loratadine 10 MG 10 MG t} 10 MG Furosemide Furosemide No 1{table QD Furosemide 20 MG 20 MG t} 20 MG Zetia 10 MG Zetia 10 MG No 1{table QD Zetia 10 t} MG Lactobacill Lactobacill No Lactobacil - us - danielle - Fenofibrate Fenofibrate No 1{table QD Fenofibrat 48 MG 48 MG t} e 48 MG Acetaminoph Acetaminoph No 1{table QID Acetaminop en-Codeine en-Codeine t_as_ne hen-Codein 300-30 MG 300-30 MG eded} e 300-30 MG Bicalutamid Bicalutamid No 1{table QD Bicalutami e 50 MG e 50 MG t} de 50 MG Potassium Potassium No 1{table QD Potassium Chloride ER Chloride ER t_with_ Chloride 20 MEQ 20 MEQ food} ER 20 MEQ Docusate Docusate No 1{capsu QD Docusate Sodium 100 Sodium 100 le_as_n Sodium 100 MG MG eeded} MG Aspirin 81 Aspirin 81 No 1{table QD Aspirin 81 81 MG 81 MG t} 81 MG Pravastatin Pravastatin No 1{table QD Pravastati Sodium 10 Sodium 10 t} n Sodium MG MG 10 MG Mirtazapine Mirtazapine No 2{table QD Mirtazapin 7.5 MG 7.5 MG ts_at_b e 7.5 MG edtime} Flomax 0.4 Flomax 0.4 No 1{capsu QD Flomax 0.4 MG MG le} MG Sertraline Sertraline No 1{table QD Sertraline HCl 50 MG HCl 50 MG t} HCl 50 MG Sotalol HCl Sotalol HCl No 1{table BID Sotalol 160 MG 160 MG t} HCl 160 MG Myrbetriq Myrbetriq No 1{table QD Myrbetriq 50 MG 50 MG t} 50 MG Loratadine Loratadine No 1{table QD Loratadine 10 MG 10 MG t} 10 MG Furosemide Furosemide No 1{table QD Furosemide 20 MG 20 MG t} 20 MG Zetia 10 MG Zetia 10 MG No 1{table QD Zetia 10 t} MG Lactobacill Lactobacill No Lactobacil us - us - danielle - Fenofibrate Fenofibrate No 1{table QD Fenofibrat 48 MG 48 MG t} e 48 MG Acetaminoph Acetaminoph No 1{table QID Acetaminop en-Codeine en-Codeine t_as_ne hen-Codein 300-30 MG 300-30 MG eded} e 300-30 MG Bicalutamid Bicalutamid No 1{table QD Bicalutami e 50 MG e 50 MG t} de 50 MG Potassium Potassium No 1{table QD Potassium Chloride ER Chloride ER t_with_ Chloride 20 MEQ 20 MEQ food} ER 20 MEQ Docusate Docusate No 1{capsu QD Docusate Sodium 100 Sodium 100 le_as_n Sodium 100 MG MG eeded} MG Pepcid 20 Pepcid 20 No 1{table QD Pepcid 20 MG MG t_at_be MG dtime_a s_neede d} Zetia 10 MG Zetia 10 MG No 1{table QD Zetia 10 t} MG Sotalol HCl Sotalol HCl No 1{table BID Sotalol 80 MG 80 MG t} HCl 80 MG Sertraline Sertraline No 1{table QD Sertraline HCl 50 MG HCl 50 MG t} HCl 50 MG Lactobacill Lactobacill No Lactobacil us - us - danielle - Acetaminoph Acetaminoph No 1{table QID Acetaminop en-Codeine en-Codeine t_as_ne hen-Codein 300-30 MG 300-30 MG eded} e 300-30 MG Pravastatin Pravastatin No 1{table QD Pravastati Sodium 10 Sodium 10 t} n Sodium MG MG 10 MG Aspirin 81 Aspirin 81 No 1{table QD Aspirin 81 81 MG 81 MG t} 81 MG Myrbetriq Myrbetriq No 1{table QD Myrbetriq 50 MG 50 MG t} 50 MG Fenofibrate Fenofibrate No 1{table QD Fenofibrat 48 MG 48 MG t} e 48 MG Bicalutamid Bicalutamid No 1{table QD Bicalutami e 50 MG e 50 MG t} de 50 MG Docusate Docusate No 1{capsu QD Docusate Sodium 100 Sodium 100 le_as_n Sodium 100 MG MG eeded} MG Vital Signs Vital Name Observation Time Observation Value Comments Source height 2022-11-22 09:15:00 70 [in_i] [facility] weight 2022-11-22 09:15:00 189 [lb_av] [facility] temperature 2022-11-22 09:15:00 97.3 [degF] [facility] bmi 2022-11-22 09:15:00 27.12 kg/m2 [facility] oximetry 2022-11-22 09:15:00 97 % [facility] respiratory rate 2022-11-22 09:15:00 16 /min Comm on [facility] blood pressure 2022-11-22 09:15:00 114 mm[Hg] Common [facility] - systolic [facility] blood pressure 2022-11-22 09:15:00 54 mm[Hg] Common [facility] - diastolic [facility] height 2022-06-23 10:00:00 70 [in_i] [facility] weight 2022-06-23 10:00:00 160 [lb_av] [facility] temperature 2022-06-23 10:00:00 97.7 [degF] [facility] bmi 2022-06-23 10:00:00 22.96 kg/m2 [facility] oximetry 2022-06-23 10:00:00 96 % [facility] respiratory rate 2022-06-23 10:00:00 18 /min Comm on [facility] blood pressure 2022-06-23 10:00:00 118 mm[Hg] [facility] [place] [place] systolic [facility] blood pressure 2022-06-23 10:00:00 58 mm[Hg] [facility] [place] [place] diastolic [facility] height 2022-03-17 09:30:00 70 [in_i] [facility] weight 2022-03-17 09:30:00 170 [lb_av] [facility] temperature 2022-03-17 09:30:00 98.0 [degF] [facility] bmi 2022-03-17 09:30:00 24.39 kg/m2 [facility] oximetry 2022-03-17 09:30:00 96 % [facility] respiratory rate 2022-03-17 09:30:00 16 /min Comm on [facility] blood pressure 2022-03-17 09:30:00 112 mm[Hg] [facility] [place] [place] systolic [facility] blood pressure 2022-03-17 09:30:00 58 mm[Hg] [facility] [place] [place] diastolic [facility] Procedures Procedure Date / Time Performed Performing Clinician Ernesto WOODS 2022-11-22 00:00:00 [facility] Plan of Care Planned Activity Planned Date Details Comments Source Future Scheduled 2023-06-21 COVID-19 VACCINE (#1) [facility] Test 08:08:13 [code = COVID-19 VACCINE (#1)] Future Scheduled 2023-06-21 SHINGLES VACCINES (1 [facility] Test 08:08:13 of 2) [code = SHINGLES VACCINES (1 of 2)] Future Scheduled 2023-06-21 65+ PNEUMOCOCCAL [facility] Test 08:08:13 VACCINE (1 - PCV) [code = 65+ PNEUMOCOCCAL VACCINE (1 - PCV)] Future Scheduled 2023-06-21 INFLUENZA VACCINE (#1) M [facility] Test 08:08:13 [code = INFLUENZA VACCINE (#1)] Encounters Start End Encounter Admission Attending Care Care Encounter Source Date/Time Date/Time Type Type Clinicians Facility Department ID 2022-09-19 Outpatient STLMLC STLMLC [id number] Common 13:06:02 [id number] [facility] 2022-07-18 Outpatient STLMLC STLMLC [id number] Common 11:44:01 [facility] 2022-06-12 Outpatient STLMLC STLMLC [id number] Common 12:59:03 [facility] 2022-04-03 Outpatient STLMLC STLMLC [id number] Common 15:28:02 [facility] 2022-03-17 Outpatient STLMLC STLMLC [id number] Common 09:20:03 [facility] 2022-11-22 2022-11-22 OFFICE STLMLC STLMLC [id number] Co mmon 00:00:00 00:00:[address] 2022-09-21 2022-09-21 (TEL) STLMLC STLMLC [id number] Co mmon 00:00:00 00:00:00 [facility] 2022-06-28 2022-06-28 (TEL) STLMLC STLMLC [id number] Co mmon 00:00:00 00:00:00 [facility] 2022-06-23 2022-06-23 OFFICE STLMLC STLMLC [id number] Co mmon 00:00:00 00:00:00 VISIT EST Spir it PT LEVEL [address] [place] [address] 2022-03-24 2022-03-24 (TEL) STLMLC STLMLC [id number] Co mmon 00:00:00 00:00:00 [facility] 2022-03-20 2022-03-20 (TEL) STLMLC STLMLC [id number] Co mmon 00:00:00 00:00:00 [facility] 2022-03-17 2022-03-17 OFFICE STLC STLC [id number] Co mmon 00:00:00 00:00:00 VISIT EST Spir it PT LEVEL 3 - [facility] Results This patient has no known results.
[2023-07-14] MEDS ORDERED: LEVALBUTEROL 1.25 MG/3 ML NEB ONE (09:32)
[2023-07-14] MEDS ORDERED: METHYLPREDNISOLONE 125 MG INJ ONE (09:32)
[2023-07-14] MEDS ORDERED: AZITHROMYCIN 500 MG INJ IVPB ONE (09:32)
[2023-07-14] MEDS ORDERED: NA CHLORIDE 0.9% 100 ML ONE (09:33)
[2023-07-14] MEDS ORDERED: FAMOTIDINE 20 MG/2 ML VIAL IV ONE (09:33)
[2023-07-14] MEDS ORDERED: PIPERACIL/TAZO 3.375 GM VIAL IV ONE (09:33)
[2023-07-14] MEDS ORDERED: NA CHLORIDE 0.9% 250 ML ONE ×2 (09:33→20:31)
[2023-07-14] MEDS ORDERED: IPRATROPIUM BROM 0.5MG/2.5ML ONE (09:33)
[2023-07-14] MEDS ORDERED: NA CHLORIDE 0.9% 1,000 ML ONE (09:33)
[2023-07-14 09:51] LABS: Absolute Lymphocytes (CBC) 0.9 K/uL (0.7-4.9); Hematocrit 32.9 % (39.6-49.0); Lymphocytes % 6.6 % (15.3-44.8); MCV 92.3 fL (80-100); MPV 9.2 fL (7.6-11.3); Platelets 310 thou/uL (152-406); Protime INR 1.48; RBC Red Blood Cell Count 3.57 M/uL (4.33-5.43)
--- NOTE | 2023-07-14 09:51 | ER ---
Nurse's Notes [facility] Name: Daniel Rivers Age: 82 yrs Sex: Male : 1940 Arrival Date: 07/14/2023 Time: 08:55 Bed 5 Private MD: Diagnosis: Pneumonia due to other specified bacteria-aspiration;COPD/ Chronic obstructive pulmonary disease with (acute) exacerbation;Cough;Dyspnea;Anemia, unspecified;Elevated white blood cell count Presentation: 07/14 09:07 Chief complaint: EMS states: SOB, cough, congestion, and malaise x 3 days. BP 142/82, hb HR 70s, SpO2 91% on RA, improved to 97% on DuoNeb. Coronavirus screen: Client presents with at least one sign or symptom that may indicate coronavirus-19. Provider contacted for isolation considerations. Ebola Screen: No symptoms or risks identified at this time. Initial Sepsis Screen: Does the patient meet any 2 criteria? No. Patient's initial sepsis screen is negative. Does the patient have a suspected source of infection? No. Patient's initial sepsis screen is negative. Risk Assessment: Do you want to hurt yourself or someone else? Patient reports no desire to harm self or others. Onset of symptoms was July 11, 2023. 09:07 Method Of Arrival: EMS: [facility] hb 09:07 Acuity: DAGOBERTO 3 hb 09:08 Transition of care: patient was received from another setting of care (long-term care facility), [facility]. Historical: - Allergies: 09:08 No Known Allergies; hb - PMHx: 09:08 Prostate Cancer; COPD; Depression; GERD; Dementia; CAD; Atrial fibrillation; hb - Immunization history:: Adult Immunizations up to date. - Family history:: not pertinent. - Social history:: Smoking status: Patient/guardian denies using tobacco, but has a distant history of tobacco abuse. Screenin:48 [facility] [place] ED Fall Risk Assessment (Adult) Score/Fall Risk Level 3 or more points = High hb Risk Oriented to surroundings, Maintained a safe environment, Educated pt \T\ family on fall prevention, incl call for assistance when getting out of bed, Assessed \T\ reinforced patient's understanding of fall precautions, Provided non-skid footwear. Abuse screen: Denies threats or abuse. Denies injuries from another. Nutritional screening: No deficits noted. Tuberculosis screening: No symptoms or risk factors identified. Assessment: 09:48 General: Appears in no apparent distress. Behavior is calm, cooperative. Pain: Denies hb pain. Neuro: Level of Consciousness is awake, alert, obeys commands, Oriented to person, place, time, situation. Cardiovascular: Patient's skin is warm and dry. Respiratory: Reports cough that is productive, Respiratory effort is mildly labored Respiratory pattern is tachypnea. GI: No signs and/or symptoms were reported involving the gastrointestinal system. : No signs and/or symptoms were reported regarding the genitourinary system. EENT: No signs and/or symptoms were reported regarding the EENT system. Derm: Skin is pink, warm \T\ dry. Musculoskeletal: No signs and/or symptoms reported regarding the musculoskeletal system. 10:59 Reassessment: Patient appears in no apparent distress at this time. No changes from hb previously documented assessment. Patient and/or family updated on plan of care and expected duration. Pain level reassessed. 11:45 Reassessment: Patient appears in no apparent distress at this time. No changes from hb previously documented assessment. Patient and/or family updated on plan of care and expected duration. Pain level reassessed. Vital Signs: 08:58 BP 148 / 82 RA Sitting (auto/reg); Pulse 72; Resp 40; Temp 98.4; Pulse Ox 95% on 2 lpm hb NC; Pain 0/10; 09:00 Temp 97.7(O); Pain 0/10; mb4 10:00 BP 142 / 80; Pulse 74; Resp 36; Pulse Ox 95% on 2 lpm NC; hb 10:59 BP 136 / 68; Pulse 71; Resp 34; Pulse Ox 95% 2 lpm ; hb 11:45 BP 141 / 60; Pulse 74; Resp 33; Pulse Ox 95% on 2 lpm NC; hb 08:58 Pain Scale: Adult hb 09:00 Pain Scale: Adult mb4 ED Course: 08:58 Patient arrived in ED. luz maria 08:58 Karlos Pierson MD is Attending Physician. luz maria 08:59 Bed in low position. Call light in reach. Side rails up X2. Client placed on continuous mb4 cardiac and pulse oximetry monitoring. NIBP monitoring applied. Pulse ox on. NIBP on. 09:08 Triage completed. hb 09:31 Inserted saline lock: 22 gauge in right antecubital area, using aseptic technique. mb4 Blood collected. 09:46 Flu Sent. mb4 09:46 SARS RAPID Sent. mb4 09:46 Basic Metabolic Panel Sent. mb4 09:46 CBC with Diff Sent. mb4 09:46 LFT's Sent. mb4 09:46 Magnesium Sent. mb4 09:46 NT PRO-BNP Sent. mb4 09:46 PT-INR Sent. mb4 09:46 Troponin HS Sent. mb4 09:48 Provided Education on: medications, tests, result times. hb 09:49 Raffaele Luna is Hospitalizing Provider. luz maria 09:50 Arm band placed on right wrist. hb 09:50 No provider procedures requiring assistance completed. hb 10:14 XRAY Chest (1 view) In Process Unspecified. EDMS 10:21 Darcy Lindsey, RN is Primary Nurse. hb 11:45 Patient admitted, IV remains in place. hb Administered Medications: 09:44 Drug: NS 0.9% IV 1000 ml IV at 1 bolus Per protocol; 1000 mL bolus Route: IV; Rate: 1 hb bolus; Site: left antecubital; 10:20 Follow up: Response: No adverse reaction; IV Status: Completed infusion; IV Intake: hb 1000ml 09:44 Drug: MethylPrednisoLONE IVP 125 mg IVP once Route: IVP; Site: left antecubital; hb 10:25 Follow up: Response: No adverse reaction hb 09:44 Drug: Famotidine IVP 20 mg IVP once; dilute with 10 mL 0.9% NaCl; give over 2 minutes hb Route: IVP; Site: left antecubital; 10:30 Follow up: Response: No adverse reaction hb 09:44 Drug: Levalbuterol Inhalation 2.5 mg Inhalation once Route: Inhalation; hb 09:44 Drug: Ipratropium Inhalation Aerosol 0.5 mg Inhalation once Route: Inhalation; hb 10:00 Drug: Piperacillin-Tazobactam IVPB 3.375 grams IVPB once over 60 mins; (mix in NS 100 hb mL) Route: IVPB; Infused Over: 60 mins; Site: left antecubital; 10:58 Follow up: Response: No adverse reaction; IV Status: Completed infusion; IV Intake: hb 100ml 10:21 Drug: NS 0.9% IV 1000 ml IV at 125 ml/hr continuous Route: IV; Rate: 125 ml/hr; Site: hb left antecubital; 11:01 Drug: Zithromax IVPB 500 mg IVPB once over 1 hrs; mix in 250 mL NS Route: IVPB; Infused hb Over: 1 hrs; Site: left antecubital; Medication: 09:48 VIS not applicable for this client. hb Intake: 10:20 IV: 1000ml; Total: 1000ml. hb 10:58 IV: 100ml; Total: 1100ml. hb Outcome: 09:51 Decision to Hospitalize by Provider. luz maria 11:45 Admitted to Tele accompanied by tech, family with patient, via stretcher, room 205, hb with oxygen, with chart, Report called to CATRACHO ZAMARRIPA 11:45 Condition: stable 11:45 Instructed on the need for admit, Demonstrated understanding of instructions, 12:04 Patient left the ED. hb Signatures: Dispatcher [employer] EDKarlos Montilla MD MD cha Baxter, Heather, RN RN hb Baxter, Mackenzie mb4 Corrections: (The following items were deleted from the chart) 09:12 09:07 Chief complaint: EMS states: Sob, cough, congestion, and malaise x 3 days. BP hb 142/82, HR 70s, SpO2 91% on RA, improved to 97% on DuoNeb. hb 09:50 09:48 Social history: Smoking status: Patient/guardian denies using tobacco, the hb patient reports quitting approximately 10 years ago, hb 10:59 08:58 BP 148 / 82 Sitting Auto R Arm Regular; Pulse 72bpm; Pulse Ox 95% 2 lpm Nasal hb Cannula; mb4
--- NOTE | 2023-07-14 09:51 | EDPHYS ---
Physician Documentation [facility] Name: Daniel Rivers Age: 82 yrs Sex: Male : 1940 Arrival Date: 07/14/2023 Time: 08:55 Bed 5 Private MD: ED Physician Karlos Pierson HPI: 07/14 09:10 This 82 yrs old Male presents to ER via EMS with complaints of cough , sob luz maria and fever. 09:10 The patient has shortness of breath at rest, with light activity. Onset: The luz maria symptoms/episode began/occurred 3 day(s) ago. Duration: The symptoms are continuous, and are steadily getting worse. The patient's shortness of breath is aggravated by exertion. The patient or guardian reports cough, difficulty breathing, flu symptoms, arthralgias, low-grade fever, myalgias. Modifying factors: The symptoms are alleviated by remaining still. fpc pt, cxr right base pneumonia. Severity of symptoms: At their worst the symptoms were moderate in the emergency department the symptoms are unchanged. Historical: - Allergies: 09:08 No Known Allergies; hb - PMHx: 09:08 Prostate Cancer; COPD; Depression; GERD; Dementia; CAD; Atrial fibrillation; hb - Immunization history:: Adult Immunizations up to date. - Family history:: not pertinent. - Social history:: Smoking status: Patient/guardian denies using tobacco, but has a distant history of tobacco abuse. ROS: 09:10 Eyes: Negative for injury, pain, redness, and discharge, ENT: Negative for injury, luz maria pain, and discharge, Neck: Negative for injury, pain, and swelling, Cardiovascular: Negative for chest pain, palpitations, and edema, Abdomen/GI: Negative for abdominal pain, nausea, vomiting, diarrhea, and constipation, Back: Negative for injury and pain, : Negative for injury, bleeding, discharge, and swelling, MS/Extremity: Negative for injury and deformity, Skin: Negative for injury, rash, and discoloration, Neuro: Negative for headache, weakness, numbness, tingling, and seizure, Psych: Negative for depression, anxiety, suicide ideation, homicidal ideation, and hallucinations, Allergy/Immunology: Negative for hives, rash, and allergies, Endocrine: Negative for neck swelling, polydipsia, polyuria, polyphagia, and marked weight changes, Hematologic/Lymphatic: Negative for swollen nodes, abnormal bleeding, and unusual bruising, 09:10 Constitutional: Positive for fatigue, fever, 09:10 Respiratory: Positive for cough, shortness of breath, wheezing, expiratory, Exam: 09:10 Constitutional: This is a well developed, well nourished patient who is awake, alert, luz maria and in no acute distress. Head/Face: Normocephalic, atraumatic. Eyes: Pupils equal round and reactive to light, extra-ocular motions intact. Lids and lashes normal. Conjunctiva and sclera are non-icteric and not injected. Cornea within normal limits. Periorbital areas with no swelling, redness, or edema. ENT: Nares patent. No nasal discharge, no septal abnormalities noted. Tympanic membranes are normal and external auditory canals are clear. Oropharynx with no redness, swelling, or masses, exudates, or evidence of obstruction, uvula midline. Mucous membranes moist. Neck: Trachea midline, no thyromegaly or masses palpated, and no cervical lymphadenopathy. Supple, full range of motion without nuchal rigidity, or vertebral point tenderness. No Meningismus. Chest/axilla: Normal chest wall appearance and motion. Nontender with no deformity. No lesions are appreciated. Cardiovascular: Regular rate and rhythm with a normal S1 and S2. No gallops, murmurs, or rubs. Normal PMI, no JVD. No pulse deficits. Abdomen/GI: Soft, non-tender, with normal bowel sounds. No distension or tympany. No guarding or rebound. No evidence of tenderness throughout. Back: No spinal tenderness. No costovertebral tenderness. Full range of motion. Male : Normal genitalia with no discharge or lesions. Skin: Warm, dry with normal turgor. Normal color with no rashes, no lesions, and no evidence of cellulitis. MS/ Extremity: Pulses equal, no cyanosis. Neurovascular intact. Full, normal range of motion. Neuro: Awake and alert, GCS 15, oriented to person, place, time, and situation. Cranial nerves II-XII grossly intact. Motor strength 5/5 in all extremities. Sensory grossly intact. Cerebellar exam normal. Normal gait. Psych: Awake, alert, with orientation to person, place and time. Behavior, mood, and affect are within normal limits. 09:10 Respiratory: mild respiratory distress is noted, Respirations: labored breathing, that is mild, Breath sounds: bronchial sounds, that are moderate, are scattered, decreased breath sounds, that are moderate, are located in both bases, are heard in the right lower lobe, right posterior middle lobe and right posterior lower lobe, rhonchi, that are moderate, are scattered, stridor, is not appreciated, Respiratory rate: 22 10:18 ECG was reviewed by the Attending Physician. [facility] Vital Signs: 08:58 BP 148 / 82 RA Sitting (auto/reg); Pulse 72; Resp 40; Temp 98.4; Pulse Ox 95% on 2 lpm hb NC; Pain 0/10; 09:00 Temp 97.7(O); Pain 0/10; mb4 10:00 BP 142 / 80; Pulse 74; Resp 36; Pulse Ox 95% on 2 lpm NC; hb 10:59 BP 136 / 68; Pulse 71; Resp 34; Pulse Ox 95% 2 lpm ; hb 11:45 BP 141 / 60; Pulse 74; Resp 33; Pulse Ox 95% on 2 lpm NC; hb 08:58 Pain Scale: Adult hb 09:00 Pain Scale: Adult mb4 MDM: 08:58 Patient medically screened. [facility] 09:17 Differential diagnosis: Anxiety Reaction Bronchitis CHF exacerbation, Chronic luz maria Obstructive Pulmonary Disease obstructed airway, bronchitis, flu, URI, viral Infection, bacterial infection, URI, bronchitis, pneumonia pneumonia, Pneumothorax reactive airway disease, Sepsis. Antibiotic administration: zosyn/zithromax. Differential Diagnosis altered mental status, sepsis, flu. Immunization status: Pneumococcal vaccine: Influenza vaccine: Data reviewed: vital signs, nurses notes, lab test result(s), EKG, radiologic studies, plain films. Consideration of Admission/Observation Patient was admitted/placed on observation. Escalation of care including admission/observation considered. I considered the following discharge prescriptions or medication management in the emergency department Medications were administered in the Emergency Department. See MAR. Test considered but Not performed: CT: no ct chest. 09:19 Independent interpretation of the following test(s) in the Emergency Department EKG: [facility] See my EKG interpretation above. 07/14 09:06 Order name: Basic Metabolic Panel; Complete Time: 10:54 [facility] 07/14 09:06 Order name: CBC with Diff; Complete Time: 10:54 [facility] 07/14 09:06 Order name: LFT's; Complete Time: 10:54 [facility] 07/14 09:06 Order name: Magnesium; Complete Time: 10:54 [facility] 07/14 09:06 Order name: NT PRO-BNP; Complete Time: 10:54 [facility] 07/14 09:06 Order name: PT-INR; Complete Time: 10:54 [facility] 07/14 09:06 Order name: Troponin HS; Complete Time: 10:54 [facility] 07/14 09:06 Order name: Blood Culture Adult (2) [facility] 07/14 09:06 Order name: Lactate w/ 2H reflex if indic.; Complete Time: 10:54 [facility] 07/14 09:06 Order name: SARS RAPID; Complete Time: 10:54 [facility] 07/14 09:06 Order name: Flu; Complete Time: 10:54 [facility] 07/14 11:28 Order name: T4 Free EDMS 07/14 11:28 Order name: Thyroid Stimulating Hormone EDMS 07/14 11:28 Order name: Urinalysis w/ reflexes EDMS 07/14 11:28 Order name: Basic Metabolic Panel EDMS 07/14 11:28 Order name: Basic Metabolic Panel EDMS 07/14 11:28 Order name: Basic Metabolic Panel EDMS 07/14 11:28 Order name: Basic Metabolic Panel EDMS 07/14 11:28 Order name: Basic Metabolic Panel EDMS 07/14 11:28 Order name: Basic Metabolic Panel EDMS 07/14 11:28 Order name: CBC with Automated Diff EDMS 07/14 11:28 Order name: CBC with Automated Diff EDMS 07/14 11:28 Order name: CBC with Automated Diff EDMS 07/14 11:28 Order name: CBC with Automated Diff EDMS 07/14 11:28 Order name: CBC with Automated Diff EDMS 07/14 11:28 Order name: CBC with Automated Diff EDMS 07/14 11:28 Order name: Magnesium EDMS 07/14 11:28 Order name: Magnesium EDMS 07/14 11:28 Order name: Magnesium EDMS 07/14 11:28 Order name: Magnesium EDMS 07/14 11:28 Order name: Magnesium EDMS 07/14 11:28 Order name: Magnesium EDMS 07/14 11:28 Order name: Phosphorus EDMS 07/14 11:28 Order name: Phosphorus EDMS 07/14 11:28 Order name: Phosphorus EDMS 07/14 11:28 Order name: Phosphorus EDND 07/14 11:28 Order name: Phosphorus EDMS 07/14 11:28 Order name: Phosphorus EDMS 07/14 11:28 Order name: Troponin High Sensitivity [facility] 07/14 11:28 Order name: Troponin High Sensitivity EDND 07/14 11:28 Order name: Troponin High Sensitivity [facility] 07/14 09:06 Order name: XRAY Chest (1 view); Complete Time: 10:54 [facility] 07/14 09:06 Order name: EKG; Complete Time: 09:06 [facility] 07/14 11:28 Order name: Speech Therapy Consult [facility] 07/14 11:28 Order name: Physical Therapy Consult [facility] 07/14 09:06 Order name: Cardiac monitoring; Complete Time: 09:45 [facility] 07/14 09:06 Order name: EKG - Nurse/Tech; Complete Time: 10:21 [facility] 07/14 09:06 Order name: IV Saline Lock; Complete Time: 09:45 [facility] 07/14 09:06 Order name: Labs collected and sent; Complete Time: 09:45 [facility] 07/14 09:06 Order name: O2 Per Protocol; Complete Time: 09:14 [facility] 07/14 09:06 Order name: O2 Sat Monitoring; Complete Time: 09:14 [facility] EC:18 Rate is 76 beats/min. Rhythm is regular. QRS Blanch[place] is Normal. [place] interval is normal. QRS luz maria interval is normal. QT interval is normal. No Q waves. T waves are Normal. No ST changes noted. Clinical impression: NSR w/ Non-specific ST/T Changes and No evidence of ischemia. Interpreted by me. Reviewed by me. Administered Medications: 09:44 Drug: NS 0.9% IV 1000 ml IV at 1 bolus Per protocol; 1000 mL bolus Route: IV; Rate: 1 hb bolus; Site: left antecubital; 10:20 Follow up: Response: No adverse reaction; IV Status: Completed infusion; IV Intake: hb 1000ml 09:44 Drug: MethylPrednisoLONE IVP 125 mg IVP once Route: IVP; Site: left antecubital; hb 10:25 Follow up: Response: No adverse reaction hb 09:44 Drug: Famotidine IVP 20 mg IVP once; dilute with 10 mL 0.9% NaCl; give over 2 minutes hb Route: IVP; Site: left antecubital; 10:30 Follow up: Response: No adverse reaction hb 09:44 Drug: Levalbuterol Inhalation 2.5 mg Inhalation once Route: Inhalation; hb 09:44 Drug: Ipratropium Inhalation Aerosol 0.5 mg Inhalation once Route: Inhalation; hb 10:00 Drug: Piperacillin-Tazobactam IVPB 3.375 grams IVPB once over 60 mins; (mix in NS 100 hb mL) Route: IVPB; Infused Over: 60 mins; Site: left antecubital; 10:58 Follow up: Response: No adverse reaction; IV Status: Completed infusion; IV Intake: hb 100ml 10:21 Drug: NS 0.9% IV 1000 ml IV at 125 ml/hr continuous Route: IV; Rate: 125 ml/hr; Site: hb left antecubital; 11:01 Drug: Zithromax IVPB 500 mg IVPB once over 1 hrs; mix in 250 mL NS Route: IVPB; Infused hb Over: 1 hrs; Site: left antecubital; Disposition Summary: 07/14/23 09:51 Hospitalization Ordered Notes: Hospitalization Status: Inpatient Admission luz maria Provider: Raffaele Luna cha Location: Telemetry/[facility]Sur (Inpatient) luz maria Condition: Fair luz maria Problem: new luz maria Symptoms: have improved luz maria Bed/Room Type: Standard [facility] Room Assignment: 205(07/14/23 11:42) eb Diagnosis - Pneumonia due to other specified bacteria - aspiration luz maria - COPD/ Chronic obstructive pulmonary disease with (acute) exacerbation luz maria - Cough luz maria - Dyspnea luz maria - Anemia, unspecified luz maria - Elevated white blood cell count luz maria Forms: - Medication Reconciliation Form luz maria - SBAR form luz maria - Leadership Thank You Letter luz maria Signatures: Dispatcher [employer] Karlos Stover MD MD cha Baxter, Heather, RN RN Suzi Duenas Corrections: (The following items were deleted from the chart) 09:50 09:48 Social history: Smoking status: Patient/guardian denies using tobacco, the patient reports quitting approximately 10 years ago, 11:42 09:51 luz maria eb
[2023-07-14 10:08] LABS: SARS-CoV-2 Antigen Rapid Res Negative (Negative)
[2023-07-14 10:13] LABS: Albumin 2.3 g/dL (3.4-5.0); Bilirubin Direct 0.4 mg/dL (0-0.2); Bilirubin Indirect, Calculated 0.4 mg/dL (0.2-0.8); Bilirubin Total 0.8 mg/dL (0.2-1.0); Magnesium 2.1 mg/dL (1.6-2.4); Potassium 3.6 mEq/L (3.5-5.1); Protein, Total 7.1 g/dL (6.4-8.2); Troponin High Sensitivity 18.9 pg/mL (<58.9)
--- NOTE | 2023-07-14 10:37 | RAD REPORT ---
EXAM DESCRIPTION: Tarast Single View07/14/2023 10:13 am CLINICAL HISTORY: Cough COMPARISON: 2021 FINDINGS: Right basilar consolidation Areas of scarring left lung Heart is normal size. Postsurgical changes involve the chest IMPRESSION: Right basilar consolidation probably pneumonia
--- NOTE | 2023-07-14 10:41 | P.HP ---
Certification for Inpatient Patient admitted to: Inpatient With expected LOS: >2 Midnights Practitioner: I am a practitioner with admitting privileges, knowledge of patient current condition, hospital course, and medical plan of care. 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 Daniel is from [facility] and had a recent chest x-ray that shows right base infiltrate, no pneumothorax, no effusion, normal pulmonary vasculature. On examination patient is hard of hearing, on 2 L nasal cannula satting 96%, mildly distressed sitting in upright position, able to speak in complete sentences, ronchi to right lung. Daughter at bedside reports he has been wheelchair-bound since the stroke. While in the ED new chest x-ray performed, ipratropium, Xopenex, methylprednisolone 125, famotadine, 1 liter NS, Zithromycin 500, Zosyn 3.375 given. Initial vitals BP 148 / 82; Pulse 72; temperature 97.7, Pulse Ox 95% on 2 lpm NC. Significant labs WBC 13.5, lactic acid 1.1, BNP 7242, COVID-negative, flu negative. CXR reports " Right basilar consolidation probably pneumonia". Daniel will be admitted to hospitalist service for further evaluation and treatment of aspiration pneumonia. Review of Systems General: Weakness, Malaise, Other (fatigue) Respiratory: Cough, Shortness of Breath Physical Examination - Physical Exam General: Alert, Oriented x3, Mild distress HEENT: Atraumatic, Normocephalic, PERRLA Neck: Supple, 2+ carotid pulse no bruit, JVD not distended Respiratory: Expiratory wheezes (right side), Rhonchi/gurgles (right side) Cardiovascular: No edema, Normal pulses, Regular rate/rhythm, Normal S1 S2 Capillary refill: <2 Seconds Gastrointestinal: Normal bowel sounds, Soft and benign Musculoskeletal: No clubbing, No swelling, No contractures, No erythema Integumentary: No rashes, No breakdown, No significant lesion, No tenderness/swelling Neurological: Abnormal gait (wheelchair bound) - Studies Laboratory Data (last 24 hrs) 07/14/23 07/14/23 07/14/23 09:35 09:35 09:35 WBC 13.50 H Hgb 10.9 L Hct 32.9 L Plt Count 310 PT 16.3 H INR 1.48 Sodium 142 Potassium 3.6 BUN 22 H Creatinine 1.07 Glucose 116 H Magnesium 2.1 Total Bilirubin 0.8 AST 45 H ALT 46 Alkaline Phosphatase 72 Microbiology Data (last 24 hrs): 07/14/23 09:41 Nasopharnyx Influenza Type A Antigen Screen - Final 07/14/23 09:41 Nasopharnyx Influenza Type B Antigen Screen - Final Assessment and Plan - Plan Assessment and plan Acute COPD exacerbation Acute Aspiration pneumonia Cough Leukocytosis WBC 13.5, BNP 7242, COVID/flu neg, bicarb 24 CXR reports " Right basilar consolidation probably pneumonia" Blood culture drawn in ED Zosyn/azithromycin given in the ED, continue Methylprednisolone 125 given in the ED solu-medrol q8h xopenex, ipratorium, supplemental oxygen incentive spirometry tessalon perle Hx Afib EKG sinus rhythm with premature supraventricular complexes, QT/QTc 448/504 Restart home medications Dementia Anxiety depression Restart home medications 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
[2023-07-14] MEDS ORDERED: IPRATROPIUM BROM 0.5MG/2.5ML NEB PRN (11:21)
[2023-07-14] MEDS ORDERED: LEVALBUTEROL 1.25 MG/3 ML NEB NEB PRN (11:25)
[2023-07-14] MEDS ORDERED: MORPHINE 2 MG/ML SYR IV PRN (11:32)
[2023-07-14] MEDS ORDERED: METHYLPREDNISOLONE 125 MG INJ IV SCH (12:00)
[2023-07-14 12:32] VITALS: BMI 25.0
[2023-07-14] MEDS: ENOXAPARIN 40 MG/0.4 ML SQ SCH (13:46)
[2023-07-14 19:00] LABS: Specific Gravity 1.029 (1.005-1.030); Urine Bacteria None Seen /HPF (<20); Urine Bilirubin NEGATIVE (Negative); Urine Blood Negative (Negative); Urine Clarity Extremely Turbid (Clear); Urine Color Yellow (Yellow); Urine Glucose NEGATIVE (Negative); Urine Mucus 1+ /HPF (None Seen); Urine Protein 1+ (Negative); Urine Urobilinogen 1+ (Normal); Urine pH 5.5 (5.0-7.0)
[2023-07-14] MEDS: PIPER TAZO 3.375 GM in NA CHLORIDE 0.9% 100 ML IV SCH (20:21)
[2023-07-15 08:27] LABS: Absolute Lymphocytes (CBC) 0.6 K/uL (0.7-4.9); Hematocrit 33.2 % (39.6-49.0); Lymphocytes % 3.3 % (15.3-44.8); MCV 92.6 fL (80-100); MPV 9.4 fL (7.6-11.3); Platelets 309 thou/uL (152-406); RBC Red Blood Cell Count 3.58 M/uL (4.33-5.43)
[2023-07-15 08:46] LABS: Magnesium 2.2 mg/dL (1.6-2.4); Phosphorus 2.4 mg/dL (2.5-4.9); Potassium 3.5 mEq/L (3.5-5.1); Thyroid Stimulating Hormone 0.663 uIU/mL (0.358-3.740)
[2023-07-15 09:20] LABS: Platelet Estimate ADEQ; White Blood Cell Scan OK (OK)
[2023-07-15 09:21] LABS: Blood Morphology Comment NOT SEEN (NOT SEEN)
[2023-07-15] MEDS: AZITHROMYCIN IV 500 MG in NA CHLORIDE 0.9% 250 ML IVPB SCH (10:05)
[2023-07-15] MEDS: PIPER TAZO 3.375 GM in NA CHLORIDE 0.9% 100 ML IV SCH ×2 (10:05→22:19)
[2023-07-15] MEDS: ENOXAPARIN 40 MG/0.4 ML SQ SCH (10:13)
[2023-07-15] MEDS: POTASS/SODIUM PHOSPHATE 1 PKT POWD.PACK PO SCH ×3 (10:16→12:26)
[2023-07-15] MEDS: METHYLPREDNISOLONE 125 MG INJ IV SCH ×2 (12:26→22:20)
--- NOTE | 2023-07-15 14:16 | P.PN ---
Subjective Date of Service: 07/15/23 Chief Complaint: SOB, aspiration PNA Patient has no new complaint. He endorses sometimes he chokes on his food. He denies shortness of breath. He has been coughing intermittently. Cough is nonproductive. Physical Examination - Vital Signs Temperature: 97.5 F Blood Pressure: 143/77 Pulse: 70 Respirations: 19 Pulse Ox (%): 90 - Studies Microbiology Data (last 24 hrs): 07/14/23 09:41 Nasopharnyx Influenza Type A Antigen Screen - Final 07/14/23 09:41 Nasopharnyx Influenza Type B Antigen Screen - Final Assessment And Plan - Plan Physical Exam General: Alert, Oriented x3, NAD. HEENT: Atraumatic, Normocephalic, PERRLA Neck: Supple, 2+ carotid pulse no bruit, JVD not distended Respiratory: Expiratory wheezes (right side), right-sided crackles. Cardiovascular: No edema, Normal pulses, Regular rate/rhythm, Normal S1 S2 Gastrointestinal: Normal bowel sounds, Soft and benign Musculoskeletal: No clubbing, No swelling, No contractures, No erythema Integumentary: No rashes, No breakdown, No significant lesion, No tenderness/ swelling Neurological: Dysarthria. Acute COPD exacerbation Acute Aspiration pneumonia Leukocytosis History of lung cancer WBC 13.5, BNP 7242, COVID/flu neg, bicarb 24 CXR reports " Right basilar consolidation probably pneumonia" Continue Zosyn/azithromycin given in the ED, continue solu-medrol q8h xopenex, ipratorium, supplemental oxygen incentive spirometry Speech therapy consult for swallow evaluation. 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 DVT ppx: lovenox Full code Discharge Plan: [facility]
[2023-07-15] MEDS ORDERED: BENZONATATE 100 MG CAP PO PRN (23:23)
[2023-07-16 02:52] LABS: Absolute Lymphocytes (CBC) 0.4 K/uL (0.7-4.9); Hematocrit 31.8 % (39.6-49.0); Lymphocytes % 2.7 % (15.3-44.8); MCV 92.4 fL (80-100); MPV 9.3 fL (7.6-11.3); Platelets 337 thou/uL (152-406); RBC Red Blood Cell Count 3.44 M/uL (4.33-5.43)
[2023-07-16 03:03] LABS: Magnesium 2.2 mg/dL (1.6-2.4); Phosphorus 2.9 mg/dL (2.5-4.9); Potassium 3.6 mEq/L (3.5-5.1)
[2023-07-16] MEDS: METHYLPREDNISOLONE 125 MG INJ IV SCH ×2 (05:01→14:19)
[2023-07-16] MEDS: AZITHROMYCIN IV 500 MG in NA CHLORIDE 0.9% 250 ML IVPB SCH (10:05)
[2023-07-16] MEDS: ENOXAPARIN 40 MG/0.4 ML SQ SCH (10:06)
[2023-07-16] MEDS: PIPER TAZO 3.375 GM in NA CHLORIDE 0.9% 100 ML IV SCH (10:56)
--- NOTE | 2023-07-16 15:11 | RAD REPORT ---
EXAM DESCRIPTION: RAD - Barium Swallow Modified - 07/16/2023 3:04 pm CLINICAL HISTORY: aspiration pneumonia COMPARISON: <Comparisons> TECHNIQUE: The patient was given liquid, semi-solid and solid forms of barium. Lateral view fluorosc opic imaging was performed in conjunction with speech pathology service. FINDINGS: MILD OROPHARYNGEAL DYSPHAGIA PHARYNGEAL RESIDUE : VALLECULAR, PYRIFORM MILD, CLEARS WITH 2-3 SWALLOWS OTHER :DECREASED MASTICATION DUE TO PT BEING EDENTULOUS FLUORO TIME 2.52 MIN
[2023-07-16 16:31] VITALS: O2SAT 98
[2023-07-16 16:38] VITALS: TEMP 97.6
--- NOTE | 2023-07-16 16:47 | P.DS ---
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 Daniel is from [facility] and had a recent chest x-ray that shows right base infiltrate, no pneumothorax, no effusion, normal pulmonary vasculature. While in the ED new chest x-ray performed showed right basilar consolidation. Patient treated with ipratropium, Xopenex, methylprednisolone 125, famotadine, 1 liter NS, Zithromycin 500, Zosyn 3.375 given. Initial vitals BP 148 / 82; Pulse 72; temperature 97.7, Pulse Ox 95% on 2 lpm NC. Significant labs WBC 13.5, lactic acid 1.1, BNP 7242, COVID-negative, flu negative. He was admitted for further management. Hospital Course: Patient admitted to the medical floor and the following medical problems addressed: Acute COPD exacerbation Acute Aspiration pneumonia Leukocytosis History of lung cancer WBC 13.5, BNP 7242, COVID/flu neg, bicarb 24 CXR reports " Right basilar consolidation probably pneumonia" Patient was treated with IV Zosyn and Zithromax Also placed on solu-medrol q8h xopenex, ipratorium, supplemental oxygen incentive spirometry Speech therapy evaluated patient, MBS done which showed only mild dysphagia. Minced and moist solids and thin liquids recommended by speech therapy. Leukocytosis likely steroid-induced. Patient had no fever and his respiratory status improved with treatment. 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 Vital Signs/Physical Exam: Temp Pulse Resp BP Pulse Ox 97.6 F 64 16 160/73 H 98 07/16/23 16:00 07/16/23 16:00 07/16/23 16:00 07/16/23 16:00 07/16/23 16:00 General: Alert, In no apparent distress, Oriented x3 HEENT: Mucous membr. moist/pink Neck: Supple, JVD not distended Respiratory: Clear to auscultation bilaterally, Normal air movement Cardiovascular: No edema, Regular rate/rhythm, Normal S1 S2 Gastrointestinal: Soft and benign, Non-distended Integumentary: No cyanosis Neurological: Other (Dysarthria) Laboratory Data at Discharge: WBC 16.50 thou/uL (4.3-10.9) H 07/16/23 01:57 Hgb 10.6 g/dL (13.6-17.9) L 07/16/23 01:57 Hct 31.8 % (39.6-49.0) L 07/16/23 01:57 Plt Count 337 thou/uL (152-406) 07/16/23 01:57 PT 16.3 SECONDS (9.5-12.5) H 07/14/23 09:35 INR 1.48 07/14/23 09:35 Sodium 144 mEq/L (136-145) 07/16/23 01:57 Potassium 3.6 mEq/L (3.5-5.1) 07/16/23 01:57 BUN 31 mg/dL (7-18) H 07/16/23 01:57 Creatinine 1.05 mg/dL (0.70-1.30) 07/16/23 01:57 Glucose 161 mg/dL (74-106) H 07/16/23 01:57 Phosphorus 2.9 mg/dL (2.5-4.9) 07/16/23 01:57 Magnesium 2.2 mg/dL (1.6-2.4) 07/16/23 01:57 Total Bilirubin 0.8 mg/dL (0.2-1.0) 07/14/23 09:35 AST 45 U/L (15-37) H 07/14/23 09:35 ALT 46 U/L (16-61) 07/14/23 09:35 Alkaline Phosphatase 72 U/L (45-117) 07/14/23 09:35 Home Medications: Albuterol Neb [Proventil 0.083% Neb Soln] 2.5 mg IH QID PRN #120 ml 07/16/23 Amox/Clavulanate [Augmentin 875-125 Tab] 1 each PO BID #20 tab 07/16/23 Benzonatate [Tessalon Perle*] 200 mg PO TID PRN #30 cap 07/16/23 Ipratropium Neb [Atrovent*] 0.5 mg NEB [id number] PRN amp 07/16/23 New Medications: Amox/Clavulanate [Augmentin 875-125 Tab] 1 each PO BID #20 tab Albuterol Neb [Proventil 0.083% Neb Soln] 2.5 mg IH QID PRN #120 ml PRN Reason: Wheezing Physician Discharge Instructions: Diet: Minced and moist solids, thin liquids. Diet: AHA Activity: Fall precautions Followup: NONE,NONE [Primary Care Provider] - Time spent managing pt's care (in minutes): 33
[2023-07-16 21:01] VITALS: BP 147/65
== END 2023-07-16 19:59 | DRG 190 ==
LOC: ER 08:55 → ERHOLD 11:31 → 2ND 11:56 → OBSVTOIN 07-16 08:06
PROVIDERS: ADMIT Internal Medicine; ATTEND Internal Medicine
DX: J44.1 Chronic obstructive pulmonary disease with (acute) exacerbation (principal); J69.0 Pneumonitis due to inhalation of food and vomit; F03.93 Unspecified dementia, unspecified severity, with mood disturbance; F03.94 Unspecified dementia, unspecified severity, with anxiety; K21.9 Gastro-esophageal reflux disease without esophagitis; I48.91 Unspecified atrial fibrillation; D64.9 Anemia, unspecified; D72.829 Elevated white blood cell count, unspecified; I69.349 Monoplegia of lower limb following cerebral infarction affecting unspecified side; I25.10 Atherosclerotic heart disease of native coronary artery without angina pectoris; Z99.3 Dependence on wheelchair; Z95.1 Presence of aortocoronary bypass graft; Z11.52 Encounter for screening for COVID-19; Z85.46 Personal history of malignant neoplasm of prostate; Z85.118 Personal history of other malignant neoplasm of bronchus and lung; Z79.899 Other long term (current) drug therapy; Z87.891 Personal history of nicotine dependence
CPT/HCPCS: 36415; 71045; 74230; 80048; 80076; 81001; 83605; 83735; 83880; 84100; 84439; 84443; 84484; 85025; 85610; 87040; 87804; 87811; 92610; 92611; 94010; 94760; 96365; 96375; 97161; 97530; 99285; G0378; J1650; J2543; J2930; J7030; J7050; J7614; J7644

== ENCOUNTER 2023-12-30 17:22 | Emergency (ER) | payer OTHER ==
[2023-12-30 18:47] LABS: Absolute Eosinophils 0.3 K/uL (0-0.5); Absolute Lymphocytes (CBC) 1.4 K/uL (0.7-4.9); Absolute Monocytes 0.9 K/uL (0.1-1.3); Absolute Neutrophil 6.1 K/uL (1.8-8.0); Basophils % 0.5 % (0-1.3); Eosinophils % 3.8 % (0-4.4); Hematocrit 36.3 % (39.6-49.0); Lymphocytes % 16.5 % (15.3-44.8); MCH 31.2 pg (27.0-35.0); MCHC 33.1 g/dL (32.0-36.0); MCV 94.5 fL (80-100); MPV 9.8 fL (7.6-11.3); Monocytes % 9.9 % (3.3-12.3); Neutrophils % 69.3 % (41.7-73.7); Platelets 223 thou/uL (152-406); RBC Red Blood Cell Count 3.84 M/uL (4.33-5.43); Red Cell Distribution Width 14.8 % (12.1-15.2)
[2023-12-30 19:09] LABS: Albumin 3.1 g/dL (3.4-5.0); Albumin/Globulin Ratio 0.9 (1.1-1.8); Anion Gap 8.7 mEq/L (5.0-15.0); Bilirubin Total 0.3 mg/dL (0.2-1.0); Globulin 3.5 g/dL (2.3-3.5); Potassium 3.7 mEq/L (3.5-5.1); Protein, Total 6.6 g/dL (6.4-8.2)
[2023-12-30 19:33] LABS: Urine Bacteria <20 /HPF (<20); Urine Micro Reflex YN NO BILL MICROSCOPIC; Urine RBC 21-50 /HPF (None Seen); Urine WBC >50 /HPF (<5)
--- NOTE | 2023-12-30 19:42 | RAD REPORT ---
EXAM DESCRIPTION: CT - Stone Protocol - 12/30/2023 7:15 pm CLINICAL HISTORY: Abdominal pain. Dysuria COMPARISON: August 2022 TECHNIQUE: Computed axial tomography of the abdomen pelvis was obtained without oral or IV contrast. Lack of IV and oral contrast limits evaluation of solid organs, appendix, bowel, and vessels. Hathaway l reformatted images were obtained and reviewed. All CT scans are performed using dose optimization technique as appropriate and may include automated exposure control or mA/KV adjustment according to patient size. FINDINGS: A renal calculus is not seen. An ureteral calculus is not noted. A bladder calculus is not present. No hydronephrosis. Bladder wall thickening. Bladder diverticula Seminal vesicles are unremarkable. No lymphadenopathy is seen. Multiple gallstones. The liver, spleen, pancreas and adrenals appear grossly normal There is no evidence of diverticulitis. Left inguinal hernia contains a portion of sigmoid colon. No obstruction. Progression and development of many sclerotic bony lesions which involve almost all of the lower thor acic and lumbar spine as well as sacrum. Sclerotic lesions are present within ileitis and pubic bones bilaterally. A 2.6 centimeter lesion is present within the L2 vertebral body. A pathologic fracture of the superior vertebral end-plate is present. No significant retropulsion of bone into the spinal c anal Mild anterior subluxation of L5 on S1 with spondylolysis L5 3 centimeter abdominal aortic aneurysm IMPRESSION: Negative for a genitourinary calculus Bladder wall thickening may indicate a cystitis Progression and development of bony metastases. Pathologic fracture L2 vertebral body
[2023-12-30 19:43] LABS: Specific Gravity 1.021 (1.005-1.030); Sqamous Epithelial None Seen /HPF (None Seen); Transitional Epithelial <5 /HPF (None Seen); Urine Bilirubin NEGATIVE (Negative); Urine Blood 1+ (Negative); Urine Clarity Extremely Turbid (Clear); Urine Color Yellow (Yellow); Urine Culture Reflex Order REFLEXED; Urine Glucose NEGATIVE (Negative); Urine Ketones NEGATIVE (Negative); Urine Nitrite NEGATIVE (Negative); Urine Protein 1+ (Negative); Urine Urobilinogen Normal (Normal)
[2023-12-30] MEDS ORDERED: CIPROFLOXACIN HCL 500 MG TAB ONE (20:07)
[2023-12-30] MEDS ORDERED: CEFTRIAXONE 1000 MG/VIAL ONE (20:07)
--- NOTE | 2023-12-30 21:18 | ER ---
Nurse's Notes [facility] Name: Daniel Rivers Age: 83 yrs Sex: Male : 1940 Arrival Date: 12/30/2023 Time: 17:22 Bed 2 Private MD: Diagnosis: UTI/ Urinary tract infection, site not specified Presentation: 12/29 17:32 Chief complaint: EMS states: Called out for urinary issues x 2-3 days. Pt c/o urgency ss and burning with urination. HX of UTI. Coronavirus screen: Client denies travel out of the [place] in the last 14 days. Ebola Screen: Patient denies exposure to infectious person. Patient denies travel to an Ebola-affected area in the 21 days before illness onset. Initial Sepsis Screen: Does the patient meet any 2 criteria? No. Patient's initial sepsis screen is negative. Does the patient have a suspected source of infection? No. Patient's initial sepsis screen is negative. Risk Assessment: Do you want to hurt yourself or someone else? Patient reports no desire to harm self or others. Onset of symptoms was December 27, 2023. 17:32 Method Of Arrival: EMS: [facility] ss 17:32 Acuity: DAGOBERTO 3 ss Historical: - Allergies: 17:35 No Known Allergies; ss - PMHx: 17:35 Atrial fibrillation; CAD; COPD; Dementia; Depression; GERD; Prostate Cancer; ss - Immunization history:: unknown. - Infectious Disease History:: Denies. - Social history:: Smoking status: unknown. Screenin:45 Abuse screen: Denies threats or abuse. Denies injuries from another. Nutritional ss screening: No deficits noted. Tuberculosis screening: Never had TB. 21:40 [facility] ED Fall Risk Assessment (Adult) History of falling in the last 3 months, km8 including since admission Yes- single mechanical fall (1 pt) Confusion or Disorientation No (0 pts) Intoxicated or Sedated No (0 pts) Impaired Gait Yes (1 pt) Mobility Assist Device Used No (0 pt) Altered Elimination No (0 pt) Score/Fall Risk Level 0 - 2 = Low Risk Oriented to surroundings, Maintained a safe environment, Educated pt \T\ family on fall prevention, incl call for assistance when getting out of bed, Assessed \T\ reinforced patient's understanding of fall precautions, Provided non-skid footwear. Assessment: 17:35 General: Appears in no apparent distress. comfortable, Behavior is calm, cooperative. ss General: Denies fever, feeling ill, fatigue, chills. Pain: Denies pain. Neuro: Level of Consciousness is awake, alert, obeys commands, Oriented to person, place, time, situation, Bag Worker are equal bilaterally Moves all extremities. Full function Speech is normal, Facial symmetry appears normal. Respiratory: Airway is patent Respiratory effort is even, unlabored, Respiratory pattern is regular, symmetrical. GI: Patient currently denies diarrhea, nausea, vomiting. : Reports burning with urination, since x 2-3. EENT: Oral mucosa is moist. Derm: Skin is thin, with poor turgor Skin is dry, Skin is pink, warm \T\ dry. normal. 18:30 Reassessment: Patient appears in no apparent distress at this time. Patient and/or ss family updated on plan of care and expected duration. Pain level reassessed. 20:10 Reassessment: Patient appears in no apparent distress at this time. Patient and/or 8 family updated on plan of care and expected duration. Pain level reassessed. Patient is alert, oriented x 3, equal unlabored respirations, skin warm/dry/pink. General: Appears in no apparent distress. comfortable, Behavior is calm, cooperative, appropriate for age. Pain: Denies pain. Neuro: Level of Consciousness is awake, alert, obeys commands, Oriented to person, place, time, situation. Cardiovascular: Denies chest pain, shortness of breath, Patient's skin is warm and dry. Respiratory: Airway is patent Respiratory effort is even, unlabored, Respiratory pattern is regular, symmetrical. Derm: Skin is thin, with poor turgor Skin is dry, Skin is pink, warm \T\ dry. normal, Skin temperature is warm. Musculoskeletal: No signs and/or symptoms reported regarding the musculoskeletal system. 21:39 Reassessment: Patient appears in no apparent distress at this time. No changes from 8 previously documented assessment. Patient and/or family updated on plan of care and expected duration. Pain level reassessed. Patient is alert, oriented x 3, equal unlabored respirations, skin warm/dry/pink. 21:52 Reassessment: gave nurse to nurse to MARILOU Wilkes; she will call back with ETA on [facility]. 22:01 Reassessment: Patient appears in no apparent distress at this time. [facility] ETA km8 45 mins; pt sleeping at this time. Vital Signs: 17:57 BP 146 / 49; Pulse 56; Resp 16; Temp 97.9(O); Pulse Ox 98% ; Weight 77.11 kg; Height 6 ss ft. 0 in. ; Pain 0/10; 19:26 BP 147 / 51; Pulse 60; Resp 16; Pulse Ox 96% ; Pain 0/10; ss 20:15 BP 119 / 107; Pulse 60; Resp 16; Pulse Ox 98% on R/A; km8 21:00 BP 146 / 64; Pulse 62; Resp 16; Pulse Ox 98% on R/A; km8 21:45 BP 124 / 53; Pulse 59; Resp 16; Pulse Ox 96% on R/A; km8 22:30 BP 110 / 77; Pulse 56; Resp 16; Pulse Ox 95% on R/A; km8 17:57 Body Mass Index 23.06 (77.11 kg, 182.88 cm) ss 17:57 Pain Scale: Adult ss 19:26 Pain Scale: Adult ss ED Course: 16:15 Inserted saline lock: 22 gauge in right forearm, using aseptic technique. Blood ss collected. 16:45 Patient has correct armband on for positive identification. ss 17:31 Patient arrived in ED. ss 17:32 Karlos Carter PA is PHCP. cp 17:32 Karlos Pierson MD is Attending Physician. cp 17:34 Triage completed. ss 17:35 Arm band placed on right wrist. ss 17:57 Annia Hager, RN is Primary Nurse. ss 19:17 CT Stone Protocol In Process Unspecified. EDMS 20:26 Primary Nurse role handed off by Annia Hager, RN km8 20:26 Monik Jackson, MARILOU is Primary Nurse. km8 20:56 Bladder scan completed. 236ml. km8 21:40 No provider procedures requiring assistance completed. km8 23:19 Provided Education on: d/c teaching. km8 23:19 IV discontinued, intact, bleeding controlled, No redness/swelling at site. Pressure km8 dressing applied. Administered Medications: 20:13 Drug: Rocephin IV 1 grams IV at calculated rate once; Given slow IV push per pharmacy km8 instructions Route: IV; Rate: calculated rate; Site: right antecubital; 20:15 Follow up: IV Status: Completed infusion; IV Intake: 10ml km 20:13 Drug: Ciprofloxacin PO 500 mg PO once Route: PO; km8 21:40 Follow up: Response: No adverse reaction Medication: 16:45 VIS not applicable for this client. ss Intake: 20:15 IV: 10ml; Total: 10ml. Outcome: 21:18 Discharge ordered by . cp 23:19 Discharged to [facility]. Report called to MARILOU Wilkes 23:19 Condition: good 23:19 Discharge instructions given to patient, [facility], Instructed on discharge instructions, follow up and referral plans. medication usage, Demonstrated understanding of instructions, follow-up care, medications, Prescriptions given X 1, 23:53 Patient left the ED. Signatures: Dispatcher [employer] EDMS Annia Hager RN RN Karlos Carter PA PA cp Marx, Katie, RN RN km8 Corrections: (The following items were deleted from the chart) 22:01 22:01 Reassessment: [facility] 45 mins km8 km8
--- NOTE | 2023-12-30 21:18 | EDPHYS ---
Physician Documentation [facility] Name: Daniel Rivers Age: 83 yrs Sex: Male : 1940 Arrival Date: 12/30/2023 Time: 17:22 Bed 2 Private MD: ED Physician Karlos Pierson HPI: 12/29 18:00 This 83 yrs old Male presents to ER via EMS with complaints of Pain With Urination, cp Urinary Problem. 18:00 The patient presents with urinary symptoms, dysuria, urinary frequency. Onset: The cp symptoms/episode began/occurred 3 day(s) ago. Associated signs and symptoms: Pertinent positives: dysuria, Pertinent negatives: abdominal pain, constipation, diarrhea, fever, hematuria, vomiting. Severity of symptoms: in the emergency department the symptoms are unchanged, despite home interventions. 18:00 The patient has experienced similar episodes in the past, several times. cp Historical: - Allergies: 17:35 No Known Allergies; ss - PMHx: 17:35 Atrial fibrillation; CAD; COPD; Dementia; Depression; GERD; Prostate Cancer; ss - Immunization history:: unknown. - Infectious Disease History:: Denies. - Social history:: Smoking status: unknown. ROS: 18:05 Constitutional: Negative for body aches, chills, fever, poor PO intake, cp 18:05 Eyes: Negative for injury, pain, redness, and discharge, cp 18:05 ENT: Negative for drainage from ear(s), ear pain, sore throat, difficulty swallowing, difficulty handling secretions, 18:05 Cardiovascular: Negative for chest pain, edema, palpitations, 18:05 Respiratory: Negative for cough, shortness of breath, wheezing, 18:05 Abdomen/GI: Negative for abdominal pain, vomiting, diarrhea, constipation, 18:05 Back: Negative for pain at rest, pain with movement, 18:05 : Positive for urinary frequency, burning with urination, Negative for hematuria, penile pain, testicular pain 18:05 Neuro: Negative for altered mental status, dizziness, headache, weakness, 18:05 All other systems are negative, Exam: 18:10 Constitutional: The patient appears in no acute distress, alert, awake, cp non-diaphoretic, non-toxic, well developed, well nourished, 18:10 Head/Face: Normocephalic, atraumatic. cp 18:10 Eyes: Periorbital structures: appear normal, Conjunctiva: normal, no exudate, no injection, Sclera: Lids and lashes: appear normal, bilaterally, 18:10 ENT: External ear(s): are unremarkable, Nose: is normal, Mouth: Lips: moist, Oral mucosa: pink and intact, moist, Posterior pharynx: Airway: no evidence of obstruction, patent, 18:10 Chest/axilla: Inspection: normal, 18:10 Cardiovascular: Rate: normal, Rhythm: regular, Edema: pedal edema, 18:10 Respiratory: the patient does not display signs of respiratory distress, Respirations: normal, no use of accessory muscles, no retractions, labored breathing, is not present, Breath sounds: are clear throughout, no decreased breath sounds, no stridor, no wheezing, 18:10 Abdomen/GI: Inspection: abdomen appears normal, Bowel sounds: active, all quadrants, Palpation: soft, in all quadrants, mild abdominal tenderness, in the suprapubic area, rebound tenderness, is not appreciated, involuntary guarding, is not appreciated, 18:10 Back: CVA tenderness, is absent, 18:10 Neuro: Orientation: to person, place \T\ time. Mentation: is normal, Motor: moves all fours, strength is 5/5 in all extremities, Sensation: is normal, Vital Signs: 17:57 BP 146 / 49; Pulse 56; Resp 16; Temp 97.9(O); Pulse Ox 98% ; Weight 77.11 kg; Height 6 ss ft. 0 in. ; Pain 0/10; 19:26 BP 147 / 51; Pulse 60; Resp 16; Pulse Ox 96% ; Pain 0/10; ss 20:15 BP 119 / 107; Pulse 60; Resp 16; Pulse Ox 98% on R/A; km8 21:00 BP 146 / 64; Pulse 62; Resp 16; Pulse Ox 98% on R/A; km8 21:45 BP 124 / 53; Pulse 59; Resp 16; Pulse Ox 96% on R/A; km8 22:30 BP 110 / 77; Pulse 56; Resp 16; Pulse Ox 95% on R/A; km8 17:57 Body Mass Index 23.06 (77.11 kg, 182.88 cm) ss 17:57 Pain Scale: Adult ss 19:26 Pain Scale: Adult ss MDM: 17:32 Patient medically screened. cp 21:17 Data reviewed: vital signs, nurses notes, lab test result(s), radiologic studies, CT cp scan, and as a result, I will discharge patient. 21:17 Differential diagnosis: appendicitis, UTI, urinary retention, prostatitis, sepsis. cp Consideration of Admission/Observation Escalation of care including admission/observation considered. I considered the following discharge prescriptions or medication management in the emergency department Medications were administered in the Emergency Department. See MAR. Care significantly affected by the following chronic conditions: Chronic Obstructive Pulmonary Disease, Cancer. Counseling: I had a detailed discussion with the patient and/or guardian regarding the historical points, exam findings, and any diagnostic results supporting the discharge/admit diagnosis, lab results, radiology results, the need for outpatient follow up, a family practitioner, to return to the emergency department if symptoms worsen or persist or if there are any questions or concerns that arise at home. 12/29 17:45 Order name: Urinalysis W/Microscopic; Complete Time: 19:51 cp 12/29 19:51 Interpretation: Normal except: [facility] Extremely Turbid; UBLD 1+; UPROT 1+; UESTR 500; cp UWBC >50; URBC 21-50. 12/29 17:54 Order name: CBC with Diff; Complete Time: 18:56 cp 12/29 17:54 Order name: CMP; Complete Time: 19:51 cp 12/29 19:51 Interpretation: Normal except: CL 109; GLUC 112; BUN 28; CRE 1.32; GFR 54; AST 13; ALB cp 3.1; A/G 0.9. 12/29 17:54 Order name: Lipase; Complete Time: 19:51 cp 12/29 17:54 Order name: Lactate w/ 2H reflex if indic.; Complete Time: 19:51 cp 12/29 19:46 Order name: Urine Culture EDMS 12/29 18:57 Order name: CT Stone Protocol; Complete Time: 19:51 cp 12/29 17:54 Order name: IV Saline Lock; Complete Time: 19:03 cp 12/29 17:54 Order name: Labs collected and sent; Complete Time: 19:03 cp Administered Medications: 20:13 Drug: Rocephin IV 1 grams IV at calculated rate once; Given slow IV push per pharmacy km8 instructions Route: IV; Rate: calculated rate; Site: right antecubital; 20:15 Follow up: IV Status: Completed infusion; IV Intake: 10ml km8 20:13 Drug: Ciprofloxacin PO 500 mg PO once Route: PO; km8 21:40 Follow up: Response: No adverse reaction km8 Disposition Summary: 12/30/23 21:18 Discharge Ordered Notes: Location: Home cp Problem: new cp Symptoms: have improved cp Condition: Stable cp Diagnosis - UTI/ Urinary tract infection, site not specified cp Followup: cp - With: Private Physician - When: 2 - 3 days - Reason: Recheck today's complaints Discharge Instructions: - Discharge Summary Sheet cp - Urinary Tract Infection, Adult cp Forms: - Medication Reconciliation Form cp - Antibiotic Education cp - Prescription Opioid Use cp - Patient Portal Instructions cp - Leadership Thank You Letter cp Prescriptions: - Cipro 250 mg Oral Tablet - take 1 tablet ORAL route every 12 hours for 10 days; 20 tablet; Refills: 0, cp Product Selection Permitted Signatures: Dispatcher [employer] Annia Trevino RN RN Karlos Carter PA PA cp Monik Jackson RN RN km8 Corrections: (The following items were deleted from the chart) 21:40 20:20 Richardson ordered. cp km8
[2023-12-31 00:33] VITALS: BP 110/77; TEMP 97.9; O2SAT 95
== END 2023-12-30 23:53 | disposition home or self-care (01) ==
LOC: ER 17:22
DX: N39.0 Urinary tract infection, site not specified (principal); F03.90 Unspecified dementia, unspecified severity, without behavioral disturbance, psychotic disturbance, mood disturbance, and anxiety
CPT/HCPCS: 87088; 85025; 81001; 87086; 36415; 83605; 83690; 80053; 76377; 74176; 96374; 99284; J0696

== ENCOUNTER 2024-06-28 09:25 | Emergency (ER) | payer OTHER ==
--- NOTE | 2024-06-28 09:58 | EDPHYS ---
Physician Documentation [facility] Name: Daniel Rivers Age: 83 yrs Sex: Male : 1940 Arrival Date: 06/28/2024 Time: 09:25 Bed 13 Private MD: ED Physician Den Bey HPI: 06/28 09:34 This 83 yrs old Male presents to ER via EMS with complaints of Urinary ec2 Retention. 09:34 Patient arrives today for urinary retention. History of BPH arrives today with ec2 inability to urinate. half-way had attempted placement of catheter however fell. Patient with some suprapubic discomfort otherwise no fevers or chills, no nausea or vomiting. History of prostate issues.. Historical: - Allergies: 09:31 No Known Allergies; rs5 - PMHx: 09:31 Atrial fibrillation; CAD; COPD; Dementia; Depression; GERD; Prostate Cancer; rs5 - PSHx: 09:31 None; rs5 - Immunization history:: Adult Immunizations up to date. - Infectious Disease History:: Denies. - Social history:: Smoking status: Patient denies any tobacco usage or history of. ROS: 09:34 Constitutional: as per hpi ec2 Exam: 09:34 Constitutional: GEN: NAD Head: atraumatic Eyes: EOMI Ears: External ears are ec2 normal. CV: regular rate LUNGS: no respiratory distress ABD: non-distended SKIN: no evidence of rashes MSK: no evidence of trauma Vital Signs: 09:27 BP 117 / 78; Pulse 74; Resp 17; Temp 98(O); Pulse Ox 98% ; rs5 11:29 BP 109 / 71; Pulse 70; Resp 17; Pulse Ox 99% on R/A; rs5 MDM: 09:29 Medical Screening Exam initiated ec2 09:34 Data reviewed: vital signs. ED course: Patient arrives today for inability to urinate. ec2 Examination is unremarkable. Will place Richardson catheter and return to home.. 06/28 09:29 Order name: Dylan; Complete Time: 09:59 ec2 Administered Medications: No medications were administered Disposition Summary: 06/28/24 09:58 Discharge Ordered Notes: Location: Home ec2 Condition: Stable ec2 Diagnosis - Retention of urine, unspecified ec2 Followup: ec2 - With: Noel Rowland MD - When: - Reason: Recheck today's complaints Discharge Instructions: - Discharge Summary Sheet ec2 - Acute Urinary Retention, Male ec2 Forms: - Medication Reconciliation Form ec2 - Antibiotic Education ec2 - Prescription Opioid Use ec2 - Patient Portal Instructions ec2 - Leadership Thank You Letter ec2 Signatures: Marvin Bone RN RN rs5 Den Bey MD MD ec2
--- NOTE | 2024-06-28 09:58 | ER ---
Nurse's Notes [facility] Name: Daniel Rivers Age: 83 yrs Sex: Male : 1940 Arrival Date: 06/28/2024 Time: 09:25 Bed 13 Private MD: Diagnosis: Retention of urine, unspecified Presentation: 06/28 09:27 Chief complaint: EMS states: [facility] toned out EMS for urinary rs5 retention. Coronavirus screen: At this time, the client does not indicate any symptoms associated with coronavirus-19. Ebola Screen: No symptoms or risks identified at this time. Initial Sepsis Screen: Does the patient meet any 2 criteria? No. Patient's initial sepsis screen is negative. Does the patient have a suspected source of infection? No. Patient's initial sepsis screen is negative. Risk Assessment: Do you want to hurt yourself or someone else? Patient reports no desire to harm self or others. Onset of symptoms was June 28, 2024. 09:27 Method Of Arrival: EMS: [facility] rs5 09:27 Acuity: DAGOBERTO 3 rs5 Triage Assessment: :31 General: Appears in no apparent distress. uncomfortable, Behavior is calm, cooperative. rs5 Pain: Denies pain. Historical: - Allergies: : No Known Allergies; rs5 - PMHx: 09:31 Atrial fibrillation; CAD; COPD; Dementia; Depression; GERD; Prostate Cancer; rs5 - PSHx: 09:31 None; rs5 - Immunization history:: Adult Immunizations up to date. - Infectious Disease History:: Denies. - Social history:: Smoking status: Patient denies any tobacco usage or history of. Screenin:30 [facility] ED Fall Risk Assessment (Adult) History of falling in the last 3 months, rs5 including since admission No falls in past 3 months (0 pts) Confusion or Disorientation No (0 pts) Intoxicated or Sedated No (0 pts) Impaired Gait Yes (1 pt) Mobility Assist Device Used Yes (1 pt) Altered Elimination Yes (1 pt) Score/Fall Risk Level 3 or more points = High Risk Oriented to surroundings, Maintained a safe environment, Educated pt \T\ family on fall prevention, incl call for assistance when getting out of bed, Assessed \T\ reinforced patient's understanding of fall precautions, Provided non-skid footwear. Abuse screen: Denies threats or abuse. Nutritional screening: No deficits noted. Tuberculosis screening: No symptoms or risk factors identified. Assessment: 09:30 General: Appears in no apparent distress. uncomfortable, Behavior is calm, cooperative. rs5 Pain: Denies pain. Neuro: Level of Consciousness is awake, alert, obeys commands, Oriented to person, place, time, situation. Cardiovascular: Patient's skin is warm and dry. Respiratory: Airway is patent Respiratory effort is even, unlabored, Respiratory pattern is regular, symmetrical. GI: Abdomen is round non-distended, Abd is soft and non tender X 4 quads. : Reports inability to void. EENT: No signs and/or symptoms were reported regarding the EENT system. Derm: Skin is intact, Skin is pink, warm \T\ dry. Musculoskeletal: Range of motion: intact in all extremities. 09:45 Reassessment: to bedside for taylor insertion with tech per MD order, 14ff taylor rs5 inserted using aseptic technique, ballon inflated, pt tolerated procedure well . 10:00 Reassessment: Patient and/or family updated on plan of care and expected duration. Pain rs5 level reassessed. Patient is alert, oriented x 3, equal unlabored respirations, skin warm/dry/pink. 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 iw 11:28 Reassessment: No changes from previously documented assessment. rs5 11:30 Reassessment: report given to EMS at bedside . rs5 Vital Signs: 09:27 BP 117 / 78; Pulse 74; Resp 17; Temp 98(O); Pulse Ox 98% ; rs5 11:29 BP 109 / 71; Pulse 70; Resp 17; Pulse Ox 99% on R/A; rs5 ED Course: 09:27 Patient arrived in ED. rs5 09:29 Den Bey MD is Attending Physician. ec2 09:30 Patient has correct armband on for positive identification. Placed in gown. Bed in low rs5 position. Call light in reach. Side rails up X2. 09:31 Triage completed. rs5 09:31 Marvin Bone, MARILOU is Primary Nurse. rs5 09:45 Taylor cath inserted, using sterile technique, 14 Fr., by me, by lining brusher, balloon rs5 inflated, to gravity drainage, returned clear yellow urine. Patient tolerated well. 09:45 No provider procedures requiring assistance completed. rs5 09:58 Noel Rowland MD is Referral Physician. ec2 10:22 Arm band placed on. iw 11:35 Patient did not have IV access during this emergency room visit. rs5 Administered Medications: No medications were administered Medication: :29 VIS not applicable for this client. rs5 Outcome: :58 Discharge ordered by . ec2 11:35 Patient left the ED. rs5 11:35 Discharged to home ambulatory, rs5 11:35 Condition: stable 11:35 Discharge instructions given to patient, family, Instructed on discharge instructions, follow up and referral plans. Demonstrated understanding of instructions, follow-up care, Signatures: Destiney Greene, RN MARILOU iw Tai Serrano RN RN ll1 Marvin Bone RN RN rs5 Den Bey MD MD ec2 Corrections: (The following items were deleted from the chart) 11:29 09:27 BP 136 / 81; Pulse 74bpm; Resp 17bpm; Pulse Ox 98%; Temp 98F Oral; rs5 rs5 14:20 11:49 Patient left the ED. ll1 rs5 14:20 14:20 Reassessment: report given to EMS at bedside . rs5 rs5
[2024-06-28 11:55] VITALS: TEMP 98
[2024-06-28 11:56] VITALS: O2SAT 99
[2024-06-28 12:00] VITALS: BP 138/88
== END 2024-06-28 11:49 | disposition home or self-care (01) ==
LOC: ER 09:25
DX: R33.9 Retention of urine, unspecified (principal); Z85.46 Personal history of malignant neoplasm of prostate
CPT/HCPCS: 51702; 99284

== ENCOUNTER 2024-08-19 08:15 | Day surgery (SDC) | payer OTHER ==
[2024-08-14 14:51] LABS: Absolute Basophils 0.1 K/uL (0-0.5); Absolute Eosinophils 0.5 K/uL (0-0.5); Absolute Lymphocytes (CBC) 0.9 K/uL (0.7-4.9); Absolute Monocytes 0.6 K/uL (0.1-1.3); Absolute Neutrophil 4.7 K/uL (1.8-8.0); Eosinophils % 7.3 % (0-4.4); Hematocrit 35.9 % (39.6-49.0); Hemoglobin 11.6 g/dL (13.6-17.9); Lymphocytes % 13.9 % (15.3-44.8); MCH 30.8 pg (27.0-35.0); MCHC 32.2 g/dL (32.0-36.0); MCV 95.5 fL (80-100); MPV 9.2 fL (7.6-11.3); Monocytes % 8.2 % (3.3-12.3); Neutrophils % 69.6 % (41.7-73.7); Platelets 291 thou/uL (152-406); RBC Red Blood Cell Count 3.76 M/uL (4.33-5.43); Red Cell Distribution Width 14.3 % (12.1-15.2)
[2024-08-14 14:53] LABS: PT Prothrombin Time 12.1 SECONDS (9.4-12.5); Protime INR 1.08
[2024-08-14 15:03] LABS: Anion Gap 10.1 mEq/L (5.0-15.0); Potassium 4.1 mEq/L (3.5-5.1)
--- NOTE | 2024-08-14 15:16 | RAD REPORT ---
Procedure: Chest Pa And Lat (2 Views) HISTORY: Cough COMPARISON: 2022 FINDINGS: Left upper lobe opacities have the appearance of scarring. Small nodular density left upper lobe prob ably present prior exam. Right lung appears clear of acute infiltrate. No significant pleural effusion noted. The heart is normal size. Post surgical changes involve the chest IMPRESSION: Small nodular density left upper lobe probably present on the prior exam and benign. Follow-up x-ray in 6 months recommended for reevaluation
--- NOTE | 2024-08-15 15:41 | EKG ---
Test Date: 2024-08-14 Test Time: 15:38:32 Supplier Development Manager: JORDAN MEASUREMENT RESULTS: Intervals: Rate: 60 IN: 184 QRSD: 82 QT: 502 QTc: 502 Radiant: P: 51 IN: 184 QRS: 121 T: 113 INTERPRETIVE STATEMENTS: Sinus rhythm with occasional premature ventricular complexes Right axis deviation Cannot rule out Anterior infarct, age undetermined Prolonged QT Abnormal ECG Compared to ECG 04/23/2021 15:23:11 Ventricular premature complex(es) now present Right-axis deviation now present Myocardial infarct finding now present ST (T wave) deviation no longer present Electronically Signed On 08-15-24 15:39:53 SCREEN TENDER by Zachery Gilliam
[2024-08-19] MEDS: Ringers Lactate 1,000 ML IV ONE ×3 (09:08→14:23)
[2024-08-19] MEDS: ALBUTEROL 2.5 MG/3 ML NEB SOL ONE (09:16)
[2024-08-19] MEDS ORDERED: FENTANYL CITR 100 MCG/2 ML ONE ×2 (09:31→12:04)
[2024-08-19] MEDS ORDERED: LIDOCAINE 1% MPF 5 ML VIAL ONE (09:31)
[2024-08-19] MEDS ORDERED: MIDAZOLAM HCL 2 MG/2 ML INJ ONE (09:31)
[2024-08-19] MEDS ORDERED: propofoL 200 MG/20 ML VIAL IV ONE (09:31)
[2024-08-19] MEDS ORDERED: ONDANSETRON 4 MG/2 ML VIAL ONE (09:31)
[2024-08-19] MEDS ORDERED: EPHEDRINE SULF 50 MG/ML VIAL ONE (09:32)
[2024-08-19] MEDS ORDERED: KETOROLAC 30 MG/ML INJ ONE (09:32)
[2024-08-19] MEDS ORDERED: ATROPINE SULF 1 MG/10 ML SYR IV ONE (10:02)
[2024-08-19] MEDS: Gentamicin Inj 160 MG in NA CHLORIDE 0.9% 100 ML IV SCH (10:08)
[2024-08-19] MEDS: VANCOMYCIN 1 GM in NA CHLORIDE 0.9% 250 ML IV SCH (10:12)
[2024-08-19] MEDS: BUPIVACAINE 0.25% PF 30 ML VIAL ONE (10:59)
[2024-08-19] MEDS: LIDOCAINE 1% 20 ML MDV ONE (10:59)
[2024-08-19] MEDS ORDERED: BACITRACIN OINTMENT 14 GM TUBE TOP ONE (11:03)
[2024-08-19 13:17] VITALS: O2SAT 100
[2024-08-19] MEDS ORDERED: PHENAZOPYRIDINE 100MG TAB PO ONE (13:19)
[2024-08-19] MEDS ORDERED: CODEINE 30MG/APAP 300MG TAB PO PRN (13:19)
--- NOTE | 2024-08-19 13:46 | P.OP ---
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 He underwent evaluation cystoscopically revealing the presence of numerous bladder diverticulae with debris, likely the source of recurrent UTIs. Additionally, he had meatal stenosis, which may have contributed to a degree of retention, but a catheter was placed prior to him coming to the OR today. Procedure note: The patient was consented in the preoperative holding area before being transferred to the operative suite where general anesthesia was induced. He was given vancomycin 1 g and gentamicin 160 mg IV antimicrobial prophylaxis, and pneumoboots were provided for DVT prophylaxis. He was placed supine on the operative table, padded and secured appropriately. His genitalia was prepped with Betadine and draped in standard fashion. The case was begun by providing a penile block using a mixture of 1% lidocaine and quarter percent Marcaine, 50-50 where a total of 30 cc was instilled 10 cc in the infrapubic midline and 10 cc in the region of the neurovascular bundles bilaterally. Once the penile block had an opportunity to set, I then applied a straight clamp to perform a dorsal slit marking the coronal rim for the point of subsequent incision to complete the circumcision. I then incised the skin around the esparza ridge and then cut the dorsal slit so that I could retract the foreskin. In the process, I cleansed beneath the foreskin using Betadine and then took down some glandar adhesions bluntly using Betadine soaked Ray-Larry sponge. I then incised the skin to leave a coronal rim that was approximately 1 cm long circumferentially. The intervening skin was then incised in the dorsal midline and then removed sharply using electrocautery. This was sent for pathologic analysis. I then carefully performed bipolar fulguration of any and all bleeding vessels within the subcutaneous and dartos areas of the shaft skin. Once hemostatic, irrigation was performed and then I reapproximated the shaft skin to the coronal rim using 3-0 chromic suture. Quadrant sutures were applied and then the intervening skin was sewn together in a running horizontal mattress fashion. Once the phallus was reconstructed and cosmetically excellent, the patient was then transferred back to a stretcher and then to the cystoscopy suite where he was placed in the lithotomy position, padded and secured to the table appropriately. His genit donna was again prepped with Hibiclens and he was now draped in standard fashion. Using a 20 Qatari UroLift sheath and a visual obturator, the sheath was used to traverse the urethra and into the bladder with ease. There was lateral lobar hypertrophy that had previously been identified. Within the bladder, it was markedly trabeculated with numerous cellules and large diverticula present posteriorly and within the posterior dome of the bladder. Within the diverticula posteriorly, there was significant calcified intravesical debris. As a result, I irrigated this debris from within his bladder in order to remove it. The bladder was otherwise healthy in appearance at this point since he had been on Bactrim preoperatively. Once the bladder was free of significant debris, I then utilized a UroLift delivery device and an implant targeting the patient's bladder neck on the left first about 1.5 to 2 cm distal to the bladder neck opening. At around the 2 to 3 o'clock position, the tissue was targeted and the trigger pulled delivering the needle through the substance of the prostate after angling the scope 15 degrees against the tissue. I then compressed the tissue and additional 15 degrees to ensure the needle was situated outside of the capsule before pulling the trigger a second time to deployed the capsular tab and partially retract the needle. I then pulled the trigger a third time to tension the suture and completely retract the needle. I then advanced the scope back toward the midline and 2 to 3 mm toward the bladder neck opening until the white line of the monofilament was centered in the delivery bay. At this point, I pulled the trigger a fourth time tailoring the suture and delivering the urethral end piece which did nicely lateralized the tissue in that location. I then turned my attention to the patient's right side where I could tell that if I placed a implant in the exact contralateral position, this would create a slightly fishmouth appearance to the bladder neck. As a result, I did an anterolateral sweeping of the tissue and targeted around the 10 to 11 o'clock position on the patient's right side elevating the bladder neck in that location and successfully deploying an implant. This implant was encroaching upon the entry into the bladder lumen with the urethral end piece, but did nicely embedded within the tissue and lateralize the opening. As predicted, when I did this, it would asymmetrically open up the bladder neck; so I placed a third implant in a stacked fashion on top of the left bladder neck implant and this did nicely open the bladder neck well at that point. After 3 implants have been placed, I then turned my attention to the apex of the prostate where I placed a fourth implant at the left apex at the proximal end of the verumontanum and 1/5 implant at the right apex at the proximal end of the verumontanum. A beautiful channel had been created at this point, but there was still some intervening tissue that was hanging down from the anterolateral aspect on his left within the mid apical zone of the prostate extending toward the bladder neck. As a result, I placed a 6 the implant into that tissue beautifully elevating that tissue. With a slight degree of intrusion coming from the apex of the prostate slightly more distal to the originally placed implants, I placed 1/7 and final implant toward the middle portion of the verumontanum on the right side this time beautifully opening and creating a continuous anterior channel visible from the verumontanum all the way through it into the bladder neck. There was minimal hematuria, and the bladder did decompress nicely at that point. As a result, I refilled the bladder and remove the scope. I then placed an 18 Qatari catheter into his bladder with slight difficulty navigating it beyond the bladder neck for some reason, as I had previously observed earlier in the case before the implants were placed at all. I irrigated the catheter and I did irrigate very well with several syringes of sterile saline, and then I placed 25 cc of sterile water into the balloon. The catheter was connected to a leg bag after he did decompress his bladder of the light pink to clear urine, and he was taken out of the lithotomy position. At this point, bacitracin was applied around the circumcision incision line and the glans penis, and a Phoebe and Coban was applied for gentle pressure dressing application. The catheter had been connected to a leg bag, and this was secured to his upper thigh. He was then awakened from general anesthesia before being transferred to a stretcher, and then transferred to the recovery room in good condition. Complications: None Discharge disposition: We will give him a voiding trial in the recovery room today, but if he fails, an 18 Qatari coud catheter will be reinserted into his bladder. Thereafter, voiding trial may be reattempted next week on Sunday or Sunday with a very low threshold for reinserting the catheter if there is any equivocal aspect to the success of his voiding. Bactrim should be provided for antimicrobial prophylaxis if he fails a voiding trial today and requires 1 next week in the clinic.
[2024-08-19 13:57] VITALS: BP 125/53
[2024-08-19] MEDS ORDERED: Ringers Lactate 1,000 ML IV SCH (14:37)
[2024-08-19] MEDS: FUROSEMIDE 40 MG/4 ML VIAL ONE (16:29)
[2024-08-19] MEDS ORDERED: FUROSEMIDE 20 MG/ 2ML VIAL IV ONE (17:28)
[2024-08-19 18:09] VITALS: TEMP 97.8
== END 2024-08-19 17:10 | disposition home or self-care (01) ==
LOC: OR 08:15
PROVIDERS: ATTEND Urology
PROC: 0VTTXZZ Resection of Prepuce, External Approach (ICD-10-PCS; principal; 2024-08-19 10:23)
PROC: 0T7D8DZ Dilation of Urethra with Intraluminal Device, Via Natural or Artificial Opening Endoscopic (ICD-10-PCS; 2024-08-19 10:23)
DX: N47.1 Phimosis (principal); N40.1 Benign prostatic hyperplasia with lower urinary tract symptoms; N13.8 Other obstructive and reflux uropathy; R33.9 Retention of urine, unspecified; N32.3 Diverticulum of bladder; Z87.440 Personal history of urinary (tract) infections
CPT/HCPCS: 93005; 85025; 80048; 36415; 85610; 88304; 71046; 54150; 52441; 52442 ×6; J2704; J2003 ×2; J1940; J0461; J7613; J1580; J2250; J3010 ×2; J2405; J7120 ×3; J7050